=== PATIENT | male | born 1980 ===

== ENCOUNTER 2017-09-25 20:15 | Emergency (ER) | payer OTHER ==
[2017-09-25] MEDS ORDERED: Sodium Chloride 0.9% 1,000 ML IV STA (22:03)
[2017-09-25 22:45] LABS: BASO # 0.1 K/uL (0.0-0.2); BASO % 0.6 % (0.0-2.0); EOS % 0.3 % (0.0-4.0); HEMOGLOBIN 13.5 g/dL (12.0-18.0); LYMPH % 10.2 % (20.0-40.0); MEAN CELL VOLUME 87.4 fl (80.0-94.0); MEAN CORPUSCULAR HEMOGLOBIN 29.1 pg (27.0-31.0); MEAN CORPUSCULAR HGB CONC 33.3 g/dL (33.0-37.0); MEAN PLATELET VOLUME 10.2 fl (7.2-11.7); MONO # 0.6 K/uL (0.0-0.8); MONO % 5.7 % (0.0-10.0); NEUT % 83.2 % (50.0-75.0); RBC 4.66 Mil/uL (4.40-5.90); RED CELL DISTRIBUTION WIDTH 13.5 % (11.5-14.5); WHITE BLOOD COUNT 9.6 K/uL (4.8-10.8)
--- NOTE | 2017-09-25 22:51 | ED PDOC ---
HPI: Influenza Time Seen by Provider: 09/25/17 21:52 Chief Complaint: Flu-like Symptoms History Per: Patient Exam Limitations: no limitations Onset/Duration Of Symptoms: Days (3) Symptoms include: fever, headache, bodyaches. denies: sore throat, cough, vomiting, diarrhea Additional complaint(s):: Reports his partner had similar symptoms few days ago and called it "flu". PMD None. Past Medical History Reviewed: Historical Data, Nursing Documentation, Vital Signs Vital Signs: Last Vital Signs Temp 100.6 F H 09/25/17 20:43 Pulse 93 H 09/25/17 20:43 Resp 18 09/25/17 20:43 BP 128/81 09/25/17 20:43 Pulse Ox 98 09/25/17 20:43 - Medical History PMH: No Chronic Diseases - Surgical History Surgical History: No Surg Hx - Family History Family History: States: No Known Family Hx - Social History Current smoker - smoking cessation education provided: No Alcohol: Occasional Drugs: Denies - Home Medications Home Medications: Ambulatory Orders Medication Instructions Recorded Cyclobenzaprine [Cyclobenzaprine 10 mg PO TID #20 tab 09/15/15 HCl] Ibuprofen [Motrin] 600 mg PO Q6 #20 tab 09/15/15 Acetaminophen [Tylenol Extra 1,000 mg PO Q6 PRN #60 tablet 09/26/17 Strength] Ibuprofen [Motrin Tab] 600 mg PO Q8 PRN #60 tab 09/26/17 - Allergies Allergies/Adverse Reactions: Allergies Allergy/AdvReac Type Severity Reaction Status Date / Time No Known Allergies Allergy Verified 09/15/15 10:55 Review of Systems ROS Statement: Except As Marked, All Systems Reviewed And Found Negative (and as per HPI) Constitutional: Positive for: Fever, Chills, Weakness, Malaise ENT: Negative for: Nose Discharge, Nose Congestion, Throat Pain Cardiovascular: Positive for: Light Headedness. Negative for: Chest Pain, Edema Respiratory: Negative for: Cough Gastrointestinal: Negative for: Vomiting, Diarrhea Musculoskeletal: Negative for: Neck Pain Skin: Negative for: Rash, Lesions Neurological: Positive for: Headache Physical Exam - Reviewed Nursing Documentation Reviewed: Yes Vital Signs Reviewed: Yes - Physical Exam Appears: Positive for: Non-toxic, No Acute Distress Head Exam: Positive for: ATRAUMATIC, NORMOCEPHALIC Skin: Positive for: Warm, Dry Eye Exam: Positive for: EOMI, PERRL ENT: Positive for: Pharynx Is (clear). Negative for: Pharyngeal Erythema, Tonsillar Exudate Neck: Positive for: Painless ROM, Supple (no meningismus) Cardiovascular/Chest: Positive for: Regular Rate, Rhythm, Chest Non Tender. Negative for: Murmur Respiratory: Positive for: Normal Breath Sounds. Negative for: Rales, Wheezing Gastrointestinal/Abdominal: Positive for: Soft. Negative for: Tenderness Back: Positive for: Normal Inspection. Negative for: Decreased ROM Extremity: Positive for: Normal ROM. Negative for: Deformity Lymphatic: Negative for: Adenopathy Neurologic/Psych: Positive for: Alert. Negative for: Motor/Sensory Deficits Medical Decision Making Medical Decision Making: Impression: Febrile illness with benign exam Labs unremarkable. Fever improved in ER along with symptoms. Advised rest, fluids, motrin/tylenol for pain/fever. f/u pmd. - Laboratory Results Result Diagrams: 09/25/17 22:38 09/25/17 22:38 - ECG O2 Sat by Pulse Oximetry: 98 Disposition - Clinical Impression Clinical Impression: Fever Counseled Patient/Family Regarding: Studies Performed, Diagnosis - Disposition Referrals: [facility] [Outside] Disposition: Routine/Home Disposition Time: 00:13 Condition: IMPROVED Prescriptions: Acetaminophen [Tylenol Extra Strength] 1,000 mg PO Q6 PRN #60 tablet PRN Reason: FEVER OR PAIN Ibuprofen [Motrin Tab] 600 mg PO Q8 PRN #60 tab PRN Reason: Pain, Moderate (4-7) Instructions: Fever, Adult (DC), Viral Syndrome (DC) Forms: [facility] ED School/Work Excuse Print Language: BURUNDIAN
[2017-09-25 22:53] LABS: ALB/GLOB RATIO 1.1 (1.0-2.1); ALBUMIN 4.2 g/dL (3.5-5.0); ALT/SGPT 50 U/L (21-72); AST/SGOT 43 U/L (17-59); BLOOD UREA NITROGEN 16 mg/dl (9-20); CALCIUM 8.8 mg/dL (8.4-10.2); GFR AFRICAN-AMERICAN > 60; GFR NON-AFRICAN AMERICAN > 60
[2017-09-25 22:59] LABS: SQUAMOUS EPITHIAL < 1 /hpf (0-5); URINE BILIRUBIN NEGATIVE (NEGATIVE); URINE BLOOD SMALL (NEGATIVE); URINE CLARITY SLIGHTY-CLOUDY (Clear); URINE COLOR AMBER (YELLOW); URINE GLUCOSE (UA) NEG (Normal); URINE LEUKOCYTE ESTERASE NEG Leu/uL (Negative); URINE PROTEIN 100 mg/dL (NEGATIVE)
[2017-09-26 01:26] VITALS: BP 119/69; PULSE 68; RESP 16; TEMP 98.9; O2SAT 99
--- NOTE | 2017-09-26 07:58 | RAD ---
HISTORY: fever unknown source COMPARISON: No prior. TECHNIQUE: Chest PA and lateral FINDINGS: LUNGS: No active pulmonary disease. PLEURA: No significant pleural effusion identified. No pneumothorax apparent. CARDIOVASCULAR: Normal. OSSEOUS STRUCTURES: No significant abnormalities. VISUALIZED UPPER ABDOMEN: Normal. OTHER FINDINGS: None. IMPRESSION: No acute cardiopulmonary disease appreciated.
== END 2017-09-26 01:26 | disposition home or self-care (01) ==
LOC: H.ER 20:15
DX: R50.9 Fever, unspecified (principal); R05 Cough
CPT/HCPCS: 71046; 80053; 81003; 85025; 86703; 87040; 87070; 87086; 87390; 87430; 87804; 96360; 99283; J7030

== ENCOUNTER 2017-09-28 12:50 | Inpatient (IN) | payer OTHER ==
[2017-09-28] MEDS ORDERED: Sodium Chloride 0.9% 1,000 ML IV STA (13:18)
--- NOTE | 2017-09-28 13:35 | ED PDOC ---
History of Present Illness History of Present Illness: 37 year old male presents to the ED a second time for persistent fever onset three days ago. Patient now also complains of associated headache, neck pain, body aches, cough and diarrhea. Denies nausea, vomiting, photophobia, abdominal pain. From his last visit, he was prescribed Motrin, but patient reports the fever keeps coming back. PMD: none provided HPI: Influenza Time Seen by Provider: 09/28/17 13:07 Chief Complaint: Flu-like Symptoms Chief Complaint (Provider): Flu-like Symptoms History Per: Patient Exam Limitations: no limitations Onset/Duration Of Symptoms: Days (x3) Symptoms include: fever, headache, bodyaches, diarrhea, other (neck pain) Past Medical History Reviewed: Historical Data, Nursing Documentation, Vital Signs Vital Signs: Last Vital Signs Temp 103.2 F H 09/28/17 12:57 Pulse 114 H 09/28/17 12:57 Resp 18 09/28/17 12:57 BP 134/80 09/28/17 12:57 Pulse Ox 97 09/28/17 12:57 - Medical History PMH: No Chronic Diseases - Surgical History Surgical History: No Surg Hx - Family History Family History: States: Unknown Family Hx - Social History Current smoker - smoking cessation education provided: No Alcohol: None Drugs: Denies - Home Medications Home Medications: Ambulatory Orders Medication Instructions Recorded No Known Home Med 09/28/17 - Allergies Allergies/Adverse Reactions: Allergies Allergy/AdvReac Type Severity Reaction Status Date / Time No Known Allergies Allergy Verified 09/15/15 10:55 Review of Systems ROS Statement: Except As Marked, All Systems Reviewed And Found Negative Constitutional: Positive for: Fever, Other (body aches) Respiratory: Negative for: Cough Gastrointestinal: Positive for: Diarrhea. Negative for: Nausea, Vomiting, Abdominal Pain Musculoskeletal: Positive for: Neck Pain Neurological: Positive for: Headache (but no photophobia) Physical Exam - Reviewed Nursing Documentation Reviewed: Yes Vital Signs Reviewed: Yes - Physical Exam Appears: Positive for: No Acute Distress (but febrile) Head Exam: Positive for: ATRAUMATIC, NORMOCEPHALIC Skin: Positive for: Normal Color, Warm, Dry Eye Exam: Positive for: Normal appearance ENT: Positive for: Normal ENT Inspection Neck: Positive for: Supple (but tender bilaterally) Cardiovascular/Chest: Positive for: Tachycardia. Negative for: Murmur Respiratory: Positive for: Normal Breath Sounds. Negative for: Accessory Muscle Use, Wheezing, Respiratory Distress Gastrointestinal/Abdominal: Positive for: Normal Exam, Soft. Negative for: Tenderness Back: Positive for: Normal Inspection Extremity: Positive for: Normal ROM Neurologic/Psych: Positive for: Alert, Oriented (x3). Negative for: Motor/ Sensory Deficits Medical Decision Making Medical Decision Making: Initial Impression: fever, flu Time: 13:13 Initial Plan: --VBG --Head CT w/o contrast --CMP --Urine dipstick --CBC with differential --Chest XR portable --Motrin 600mg PO --Sodium chloride 0.9% 1000ml IV --Rocephin 2gm Sodium chloride 0.9% 100ml IV --Tylenol 650mg PO --Zovirax 800mg Sodium chloride 0.9% 250ml IV --Vancomycin 1gm Sodium chloride 0.9% 250ml IV --Blood culture --Influenza A B --Urinalysis 13:[address] FINDINGS: HEMORRHAGE: Trace left temporal subarachnoid hemorrhage is questioned at the mid left temporal laterally in image 29 series 4. Is difficult to differentiate this linear hyperdensity from artifact and follow-up head CT is advised in 12-24 hours. BRAIN: No mass effect or edema. No atrophy or chronic microvascular ischemic changes. VENTRICLES: Unremarkable. No hydrocephalus. CALVARIUM: Unremarkable. PARANASAL SINUSES: Unremarkable as visualized. No significant inflammatory changes. MASTOID AIR CELLS: Unremarkable as visualized. No inflammatory changes OTHER FINDINGS: None. IMPRESSION: Trace left temporal subarachnoid hemorrhage is difficult to completely exclude or differentiate from artifact and follow-up head CT is advised 12-24 hours abort. The remaining brain parenchyma is normal appearing. Time: 14:17 Initial Plan: --CSF Cell Count/Diff --CSF Electrophoresis --CSF IGG --Herpes Simplex 1 / 2, PCR --VDRL, CSF --Glucose, CSF --Total protein, CSF Lumbar Puncture Performed by the emergency provider Time: 14:17 Consent: Informed consent, after discussion of the risks, benefits, and alternatives to the procedure, was obtained using digital marketing project manager [id number] Timeout: A timeout to verify the correct patient, procedure, and site was performed immediately prior to the procedure. Indication: headache, fever Patient's position: sitting Anesthesia: Local anesthesia: Lido 1% 3cc. See MAR for details. Preparation: Patient was prepped and draped in the usual sterile fashion and sterile technique was used. The landmarks were identified. Needle size: A 20 gauge spinal needle. Lumbar entry space: L4-L5 level. Fluid appearance: clear. Post-procedure: Site cleansed and adhesive bandage applied. The patient tolerated the procedure well with no immediate complications. CSF was sent to lab for analysis. Scribe Attestation: Documented by Divya Ordonez, acting as a scribe for Rowan Colindres MD. Provider Scribe Attestation: All medical entries made by the Scribe were at my direction and personally dictated by me. I have reviewed the chart and agree that the record accurately reflects my personal performance of the history, physical exam, medical decision making, and the department course for this patient. I have also personally directed, reviewed, and agree with the discharge instructions and disposition. - Laboratory Results Result Diagrams: 09/29/17 05:55 09/29/17 05:55 - ECG O2 Sat by Pulse Oximetry: 97 (RA) Pulse Ox Interpretation: Normal Disposition - Clinical Impression Clinical Impression: Influenza-like symptoms, Pneumonia, Headache - Disposition Disposition: Transfer of Care Disposition Time: 15:00 Condition: STABLE Patient Signed Over To: Edson Joya
[2017-09-28 13:48] LABS: VENOUS BLOOD GAS BASE EXCESS -0.9 mmol/L (0.0-2.0); VENOUS BLOOD GAS PCO2 31 mmHg (40-60); VENOUS BLOOD GAS PO2 39 mm/Hg (30-55); VENOUS BLOOD PH 7.46 (7.32-7.43)
[2017-09-28] MEDS ORDERED: Lidocaine 1% MPF (30 ml) Inj ONE (13:55)
--- NOTE | 2017-09-28 13:57 | CT ---
PROCEDURE: CT HEAD WITHOUT CONTRAST. HISTORY: CHRISTINE, fever COMPARISON: None available. TECHNIQUE: Axial computed tomography images were obtained through the head/brain without intravenous contrast. Radiation dose: Total exam DLP = 869.19 mGy-cm. This CT exam was performed using one or more of the following dose reduction techniques: Automated exposure control, adjustment of the mA and/or kV according to patient size, and/or use of iterative reconstruction technique. FINDINGS: HEMORRHAGE: Trace left temporal subarachnoid hemorrhage is questioned at the mid left temporal laterally in image 29 series 4. Is difficult to differentiate this linear hyperdensity from artifact and follow-up head CT is advised in 12-24 hours. BRAIN: No mass effect or edema. No atrophy or chronic microvascular ischemic changes. VENTRICLES: Unremarkable. No hydrocephalus. CALVARIUM: Unremarkable. PARANASAL SINUSES: Unremarkable as visualized. No significant inflammatory changes. MASTOID AIR CELLS: Unremarkable as visualized. No inflammatory changes. OTHER FINDINGS: None. IMPRESSION: Trace left temporal subarachnoid hemorrhage is difficult to completely exclude or differentiate from artifact and follow-up head CT is advised 12-24 hours abort. The remaining brain parenchyma is normal appearing.
[2017-09-28 14:42] LABS: FLUID TYPE SPINAL FLUID
[2017-09-28 14:46] LABS: BASO % 0.3 % (0.0-2.0); HEMOGLOBIN 13.6 g/dL (12.0-18.0); LYMPH # 0.4 K/uL (1.0-4.3); LYMPH % 5.5 % (20.0-40.0); MEAN CELL VOLUME 86.6 fl (80.0-94.0); MEAN CORPUSCULAR HEMOGLOBIN 28.8 pg (27.0-31.0); MEAN CORPUSCULAR HGB CONC 33.2 g/dL (33.0-37.0); MEAN PLATELET VOLUME 12.5 fl (7.2-11.7); MONO # 0.3 K/uL (0.0-0.8); NEUT # 6.7 K/uL (1.8-7.0); NEUT % 90.2 % (50.0-75.0); NRBC % 0.4 % (0.0-0.0); PLATELET COUNT 87 K/uL (130-400); RBC 4.71 Mil/uL (4.40-5.90); RED CELL DISTRIBUTION WIDTH 13.7 % (11.5-14.5); WHITE BLOOD COUNT 7.4 K/uL (4.8-10.8)
[2017-09-28 15:07] LABS: ALB/GLOB RATIO 0.9 (1.0-2.1); ALT/SGPT 103 U/L (21-72); AST/SGOT 142 U/L (17-59); BLOOD UREA NITROGEN 12 mg/dl (9-20); CALCIUM 9.4 mg/dL (8.4-10.2); GFR AFRICAN-AMERICAN > 60; GFR NON-AFRICAN AMERICAN > 60
--- NOTE | 2017-09-28 15:16 | ED PDOC ---
- Laboratory Results Result Diagrams: 09/28/17 14:20 09/28/17 14:20 - ECG O2 Sat by Pulse Oximetry: 100 Medical Decision Making Medical Decision Makin:00 Patient care endorsed from Dr. Colindres to Dr. Joya pending lab results and final disposition. 1700 CSF is unremarkable. No evidence of SAH or meningitis. Discussed the case and findings with Dr Leon. He recommends admission for repeat CT head in am. No isolation requires. CXR with possible LLL infiltrate possible source of infection. Antibiotics given. EXAM: XR Chest, 1 View CLINICAL HISTORY: 37 years old, male; Pain; Chest pain; On breathing; Additional info: Fever TECHNIQUE: Frontal view of the chest. COMPARISON: No relevant prior studies available. FINDINGS: Limitations: Evaluation is limited by acquisition during expiration. Lungs: There are mildly increased interstitial opacities in the left mid to lower lung field. The right lung is clear Pleural space: Unremarkable. No pneumothorax. Heart: Unremarkable. No cardiomegaly. Mediastinum: Unremarkable. Bones/joints: Unremarkable. IMPRESSION: Left mid to lower lung field subsegmental atelectasis versus infiltrate is suspected. Evaluation limited by acquisition during expiration. Recommend PA and lateral projections if the patient is able. Thank you for allowing us to participate in the care of your patient. Dictated and Authenticated by: Lisandra Rucker MD 09/28/2017 5:35 PM Eastern Time ([place] & [place]) Scribe Attestation: Documented by Divya Ordonez, acting as a scribe for Edson Joya MD. Provider Scribe Attestation: All medical entries made by the Scribe were at my direction and personally dictated by me. I have reviewed the chart and agree that the record accurately reflects my personal performance of the history, physical exam, medical decision making, and the department course for this patient. I have also personally directed, reviewed, and agree with the discharge instructions and disposition. Disposition Discussed With : Dale Coelho Doctor Will See Patient In The: ED Counseled Patient/Family Regarding: Studies Performed, Diagnosis - Clinical Impression Clinical Impression: Influenza-like symptoms, Pneumonia, Headache - POA Present On Arrival: None - Disposition Disposition: Hospitalized as Observation Patient Disposition Time: 16:40 Condition: FAIR
[2017-09-28 15:35] LABS: CSF APPEARANCE CLEAR/COLORLESS (CLEAR); CSF VOLUME 2 mL (0-1)
[2017-09-28] MEDS ORDERED: Azithromycin 500 MG in Sodium Chloride 0.9% 250 ML IVPB STA (16:45)
[2017-09-28 16:54] LABS: BANDS 6 % (0-2); LYMPHOCYTE 6 % (20-50); MONOCYTE 5 % (0-10); NEUTROPHIL 83 % (42-75); PLATELET ESTIMATE MARKEDLY DECREASED (NORMAL); TOTAL CELLS COUNTED 100
[2017-09-28 16:55] LABS: ANISOCYTOSIS SLIGHT; LARGE PLATELETS PRESENT; MICROCYTOSIS SLIGHT
[2017-09-28 17:06] LABS: CSF APPEARANCE CLEAR/COLORLESS (CLEAR); CSF VOLUME 2 mL (0-1); FLUID TYPE SPINAL FLUID
[2017-09-28 17:16] LABS: URINE BACTERIA RARE (<OCC); URINE BILIRUBIN NEGATIVE (NEGATIVE); URINE CLARITY SLIGHTY-CLOUDY (Clear); URINE COLOR YELLOW (YELLOW); URINE GLUCOSE (UA) NEG (Normal); URINE LEUKOCYTE ESTERASE NEG Leu/uL (Negative); URINE PROTEIN 100 mg/dL (NEGATIVE); URINE UROBILINOGEN 0.2-1.0 mg/dL (0.2-1.0)
[2017-09-28 17:16] LABS: CSF MONO/MACROPHAGE 2 % (0-0)
[2017-09-28 17:17] LABS: URINE BLOOD NEGATIVE (NEGATIVE)
[2017-09-28 17:34] LABS: CSF MONO/MACROPHAGE 1 % (0-0)
--- NOTE | 2017-09-28 17:41 | RAD ---
HISTORY: Fever COMPARISON: Chest radiographs 09/25/2017. FINDINGS: LUNGS: Borderline left lower lobe infiltrate. Interstitial markings are slightly increased and pulmonary vascular congestion appears mild. No right-sided infiltrate. No pleural effusion bilaterally or pneumothorax. Cardiac size appears prominent. Trachea is midline. PLEURA: As above. CARDIOVASCULAR: As above. OSSEOUS STRUCTURES: No significant abnormalities. VISUALIZED UPPER ABDOMEN: Normal. OTHER FINDINGS: None. IMPRESSION: Early infiltrate or mild atelectasis is identified the left lower lobe medially with borderline pulmonary vascular congestion. Cardiac silhouette appears prominent.
[2017-09-28] MEDS ORDERED: Sodium Chloride 3% for Inhalation 4 ML VIAL.NEB IH PRN (18:07)
--- NOTE | 2017-09-28 18:16 | CP.PCM.HP ---
History of Present Illness - History of Present Illness History of Present Illness: CC: Fever This is a 37 year old male with a past medical history of persistent fever since 3 days ago, now coming to the ED with the complaint of generalized malaise , headache, neck pain, body aches, cough, and diarrhea. The patient states that he was given motrin but despite this the fever kept coming back. In the ED, LP was done which showed clear spinal fluid with mild lymphocyte elevation but otherwise no acute evidence of meningitis. He denies photophobia, nausea, or vomiting, but does complain of generalized headache, fever, cough, and chills. CT scan was done which shows likely artifact but cannot rule out completely small SAH (though as per neurology this is highly unlikely given no blood in CSF and no other signs). However the patient was seen to have questionable left lower lobe infiltrate on CXR. The patient is being admitted for further hemodynamic monitoring, IV antibiotics for pneumonia, and for repeat CT head in AM. Present on Admission - Present on Admission Any Indicators Present on Admission: No History of DVT/PE: No History of Uncontrolled Diabetes: No Review of Systems - Review of Systems Review of Systems: A 12 point review of systems was conducted and found to be negative other than in HPI. Past Patient History - Infectious Disease Hx of Infectious Diseases: None - Past Medical History & Family History Past Medical History?: No Past Family History: Reviewed and not pertinent - Past Social History Smoking Status: Never Smoked Alcohol: Occasional Drugs: Denies - PSYCHIATRIC Hx Substance Use: No - SURGICAL HISTORY Hx Surgeries: No - ANESTHESIA Hx Anesthesia: No Meds Allergies/Adverse Reactions: Allergies Allergy/AdvReac Type Severity Reaction Status Date / Time No Known Allergies Allergy Verified 09/15/15 10:55 Physical Exam - Additional Findings Additional findings: Physical exam: Constitutional- cooperative, awake, alert, diaphoretic Head- NCAT, PERRL Eye- PERRL, EOMI. ENT- normal exam, MMM. Neck- normal inspection, supple, no JVD Respiratory- CTAB, no wheezes rales rhonchi Cardiovascular- RRR, +S1, +S2 no MRG GI/Abdominal- normal bowel sounds, soft, no mass, no hsm Skin- warm, dry Extremities Exam- normal capillary refill, normal inspection Neurological Exam- alert, awake, oriented Psych- normal mood, normal affect Results - Vital Signs Recent Vital Signs: Last Vital Signs Temp 98.7 F 09/28/17 16:30 Pulse 88 09/28/17 16:30 Resp 14 09/28/17 16:30 BP 125/81 09/28/17 16:30 Pulse Ox 100 09/28/17 18:08 - Labs Result Diagrams: 09/28/17 14:20 09/28/17 14:20 Labs: Laboratory Results - last 24 hr 09/28/17 09/28/17 09/28/17 13:41 14:18 14:20 WBC 7.4 RBC 4.71 Hgb 13.6 Hct 40.8 MCV 86.6 MCH 28.8 MCHC 33.2 RDW 13.7 Plt Count 87 L D MPV 12.5 H Neut % (Auto) 90.2 H Lymph % (Auto) 5.5 L Dane % (Auto) 4.0 Eos % (Auto) 0.0 Baso % (Auto) 0.3 Neut # (Auto) 6.7 Lymph # (Auto) 0.4 L Dane # (Auto) 0.3 Eos # (Auto) 0.0 Baso # (Auto) 0.0 Neutrophils % (Manual) 83 H Band Neutrophils % 6 H Lymphocytes % (Manual) 6 L Monocytes % (Manual) 5 Platelet Estimate Markedly decreased L Large Platelets Present Anisocytosis (manual) Slight Microcytosis (manual) Slight pO2 39 VBG pH 7.46 H VBG pCO2 31 L VBG HCO3 23.7 VBG Total CO2 23.0 VBG O2 Sat (Calc) 82.2 H VBG Base Excess -0.9 L VBG Potassium 3.7 Sodium 134.0 Chloride 102.0 Glucose 154 H Lactate 2.0 FiO2 21.0 Blood Gas Comments Lac=2.0 Crit Value Called To kaycee Ward Crit Value Called By Crit Value Read Back Y Blood Gas Notified Time 1347 Potassium Carbon Dioxide Anion Gap BUN Creatinine Est GFR ( Amer) Est GFR (Non-Af Amer) Random Glucose Calcium Total Bilirubin AST ALT Alkaline Phosphatase Total Protein Albumin Globulin Albumin/Globulin Ratio Venous Blood Potassium 3.7 Urine Color Urine Clarity Urine pH Ur Specific [place] Urine Protein Urine Glucose (UA) Urine Ketones Urine Blood Urine Nitrate Urine Bilirubin Urine Urobilinogen Ur Leukocyte Esterase Urine RBC (Auto) Urine Microscopic WBC Urine Bacteria Fluid Type Spinal fluid CSF Volume 2 H CSF Appearance Clear/colorless CSF WBC 2.0 CSF RBC 0.0 CSF Total Cell Counted 5 H CSF Lymphocytes 4.0 H CSF Monos/Macrophages 1 H CSF Comment Tube #4 CSF Glucose CSF Total Protein Influenza Typ A,B (EIA) 09/28/17 09/28/17 09/28/17 14:20 14:40 14:40 WBC RBC Hgb Hct MCV MCH MCHC RDW Plt Count MPV Neut % (Auto) Lymph % (Auto) Dane % (Auto) Eos % (Auto) Baso % (Auto) Neut # (Auto) Lymph # (Auto) Dane # (Auto) Eos # (Auto) Baso # (Auto) Neutrophils % (Manual) Band Neutrophils % Lymphocytes % (Manual) Monocytes % (Manual) Platelet Estimate Large Platelets Anisocytosis (manual) Microcytosis (manual) pO2 VBG pH VBG pCO2 VBG HCO3 VBG Total CO2 VBG O2 Sat (Calc) VBG Base Excess VBG Potassium Sodium 137 Chloride 101 Glucose Lactate FiO2 Blood Gas Comments Crit Value Called To Crit Value Called By Crit Value Read Back Blood Gas Notified Time Potassium 3.8 Carbon Dioxide 20 L Anion Gap 20 BUN 12 Creatinine 0.8 Est GFR ( Amer) > 60 Est GFR (Non-Af Amer) > 60 Random Glucose 134 H Calcium 9.4 Total Bilirubin 1.1 AST 142 H D ALT 103 H D Alkaline Phosphatase 127 H D Total Protein 8.3 H Albumin 4.0 Globulin 4.3 H Albumin/Globulin Ratio 0.9 L Venous Blood Potassium Urine Color Urine Clarity Urine pH Ur Specific [place] Urine Protein Urine Glucose (UA) Urine Ketones Urine Blood Urine Nitrate Urine Bilirubin Urine Urobilinogen Ur Leukocyte Esterase Urine RBC (Auto) Urine Microscopic WBC Urine Bacteria Fluid Type Spinal fluid CSF Volume 2 H CSF Appearance Clear/colorless CSF WBC 4.0 CSF RBC 2.0 H CSF Total Cell Counted 15 H CSF Lymphocytes 13.0 H CSF Monos/Macrophages 2 H CSF Comment CSF Glucose 81 H CSF Total Protein Influenza Typ A,B (EIA) 09/28/17 09/28/17 09/28/17 14:40 14:42 16:55 WBC RBC Hgb Hct MCV MCH MCHC RDW Plt Count MPV Neut % (Auto) Lymph % (Auto) Dane % (Auto) Eos % (Auto) Baso % (Auto) Neut # (Auto) Lymph # (Auto) Dane # (Auto) Eos # (Auto) Baso # (Auto) Neutrophils % (Manual) Band Neutrophils % Lymphocytes % (Manual) Monocytes % (Manual) Platelet Estimate Large Platelets Anisocytosis (manual) Microcytosis (manual) pO2 VBG pH VBG pCO2 VBG HCO3 VBG Total CO2 VBG O2 Sat (Calc) VBG Base Excess VBG Potassium Sodium Chloride Glucose Lactate FiO2 Blood Gas Comments Crit Value Called To Crit Value Called By Crit Value Read Back Blood Gas Notified Time Potassium Carbon Dioxide Anion Gap BUN Creatinine Est GFR ( Amer) Est GFR (Non-Af Amer) Random Glucose Calcium Total Bilirubin AST ALT Alkaline Phosphatase Total Protein Albumin Globulin Albumin/Globulin Ratio Venous Blood Potassium Urine Color Yellow Urine Clarity Slighty-cloudy Urine pH 6.0 Ur Specific [place] 1.013 Urine Protein 100 Urine Glucose (UA) Neg Urine Ketones Negative Urine Blood Negative Urine Nitrate Negative Urine Bilirubin Negative Urine Urobilinogen 0.2-1.0 Ur Leukocyte Esterase Neg Urine RBC (Auto) 3 Urine Microscopic WBC 2 Urine Bacteria Rare Fluid Type CSF Volume CSF Appearance CSF WBC CSF RBC CSF Total Cell Counted CSF Lymphocytes CSF Monos/Macrophages CSF Comment CSF Glucose CSF Total Protein 44.0 Influenza Typ A,B (EIA) Negative for flu a/b Assessment & Plan - Assessment and Plan (Free Text) Plan: ASSESSMENT/PLAN This is a 37 year old male with a past medical history of persistent fever since 3 days ago, now coming to the ED with the complaint of generalized malaise , headache, neck pain, body aches, cough, and diarrhea. The patient states that he was given motrin but despite this the fever kept coming back. In the ED, LP was done which showed clear spinal fluid with mild lymphocyte elevation but otherwise no acute evidence of meningitis. He denies photophobia, nausea, or vomiting, but does complain of generalized headache, fever, and chills. CT scan was done which shows likely artifact but cannot rule out completely small SAH ( though as per neurology this is highly unlikely given no blood in CSF and no other signs). However the patient was seen to have questionable left lower lobe infiltrate on CXR. The patient is being admitted for further hemodynamic monitoring, IV antibiotics for pneumonia, and for repeat CT head in AM. 1) Left lower lobe pneumonia - Med/surg observation - Azithromycin/Rocephin - Monitor vitals - Repeat labs in AM - Tylenol for fever 2) ? small SAH on CT(likely artifact) - No other signs of hemorrhagic CVA and no hx of trauma - Repeat CT head in AM 3) S/p LP - Meningitis thought unlikely at this time - F/u on CSF labs, consider ID consult if abnormal 4) DVT prophylaxis - SCDs (until sah ruled out)
[2017-09-28] MEDS ORDERED: Azithromycin 500 MG IV IVPB ONE (18:44)
[2017-09-28] MEDS: Sodium Chloride 0.9% 1,000 ML IV SCH ×2 (20:35→20:36)
[2017-09-28] MEDS: guaiFENesin 200 mg/10 ml Syrup UD PO PRN (23:30)
[2017-09-29 06:12] LABS: HEMOGLOBIN 12.8 g/dL (12.0-18.0); MEAN CELL VOLUME 86.7 fl (80.0-94.0); MEAN CORPUSCULAR HEMOGLOBIN 29.2 pg (27.0-31.0); MEAN CORPUSCULAR HGB CONC 33.7 g/dL (33.0-37.0); RBC 4.39 Mil/uL (4.40-5.90)
[2017-09-29 06:21] LABS: BLOOD UREA NITROGEN 8 mg/dl (9-20); CALCIUM 8.5 mg/dL (8.4-10.2); GFR AFRICAN-AMERICAN > 60; GFR NON-AFRICAN AMERICAN > 60
[2017-09-29] MEDS: Azithromycin 500 MG in Sodium Chloride 0.9% 250 ML IVPB SCH (08:07)
[2017-09-29] MEDS: Sodium Chloride 0.9% 1,000 ML IV SCH ×2 (08:09→21:10)
[2017-09-29 09:27] LABS: ALB/GLOB RATIO 0.9 (1.0-2.1); ALBUMIN 3.5 g/dL (3.5-5.0); BILIRUBIN,DIRECT 0.6 mg/ml (0.0-0.4)
[2017-09-29 10:39] LABS: INR 1.3 (0.9-1.2); PROTHROMBIN TIME 14.3 Seconds (9.8-13.1)
--- NOTE | 2017-09-29 11:44 | CP.PCM.PN ---
Subjective - Date & Time of Evaluation Date of Evaluation: 09/29/17 Time of Evaluation: 10:15 - Subjective Subjective: Patient seen and examined. Complaining of headache and persistent high fever. Objective - Vital Signs/Intake and Output Vital Signs (last 24 hours): Temp Pulse Resp BP Pulse Ox 102.7 F H 101 H 20 146/90 98 09/29/17 08:07 09/29/17 08:07 09/29/17 08:07 09/29/17 08:07 09/29/17 08:07 - Medications Medications: Current Medications Acetaminophen (Tylenol 325mg Tab) 650 mg PO Q6 PRN PRN Reason: Fever >100.4 F Last Admin: 09/29/17 08:05 Dose: 650 mg Guaifenesin (Robitussin) 200 mg PO Q6 PRN PRN Reason: Cough Last Admin: 09/28/17 23:30 Dose: 200 mg Azithromycin 500 mg/ Sodium (Chloride) 250 mls @ 250 mls/hr IVPB DAILY CHERISE PRN Reason: Protocol Last Admin: 09/29/17 08:07 Dose: 250 mls/hr Ceftriaxone Sodium 1 gm/ (Sodium Chloride) 100 mls @ 100 mls/hr IVPB DAILY CHERISE PRN Reason: Protocol Last Admin: 09/29/17 08:06 Dose: 100 mls/hr Sodium Chloride (Sodium Chloride 0.9%) 1,000 mls @ 75 mls/hr IV .[id number] CHERISE Last Admin: 09/29/17 08:09 Dose: 75 mls/hr Acyclovir 800 mg/ Sodium (Chloride) 250 mls @ 250 mls/hr IVPB Q8 CHERISE PRN Reason: Protocol Last Admin: 09/29/17 08:08 Dose: 250 mls/hr - Labs Labs: 09/29/17 05:55 09/29/17 05:55 PT 14.3 Seconds (9.8-13.1) H 09/29/17 10:23 INR 1.3 (0.9-1.2) H 09/29/17 10:23 - Constitutional Appears: No Acute Distress - Head Exam Head Exam: ATRAUMATIC - Eye Exam Eye Exam: absent: Scleral icterus - ENT Exam ENT Exam: Mucous Membranes Moist - Neck Exam Neck Exam: absent: Meningismus - Respiratory Exam Respiratory Exam: absent: Rales, Rhonchi, Wheezes, Respiratory Distress - Cardiovascular Exam Cardiovascular Exam: REGULAR RHYTHM, +S1, +S2 - GI/Abdominal Exam GI & Abdominal Exam: Soft. absent: Tenderness - Rectal Exam Rectal Exam: Deferred - Extremities Exam Extremities Exam: absent: Calf Tenderness, Pedal Edema - Back Exam Back Exam: absent: tenderness - Neurological Exam Neurological Exam: Alert, Oriented x3 - Psychiatric Exam Psychiatric exam: Normal Affect - Skin Skin Exam: Dry, Intact Assessment and Plan - Assessment and Plan (Free Text) Assessment: 37 yo male with no significant PMH came in with persistent fever of 3 days duration accompanied with headache, general malaise, cough and diarrhea. LP was done in the ER but did not show evidence of meningitis. CXray was questionable for LLL infiltrate. 1. Persistent Fever questionable LLL infiltrate CT scan of the chest Hepatitis profile (LFTs were elevated but trending down) on Rocephin, Zithromax and Acyclovir ID consult with Dr Archer 2. Questionable Small SAH on CT scan of head repeat CT scan of head CSF was clear on LP done in the ER 3. DVT prophylaxis venodyne boots while in bed
--- NOTE | 2017-09-29 11:45 | CP.PCM.CON ---
History of Present Illness - History of Present Illness History of Present Illness: Infectious Disease Consultation_ asked to see this patient at the request of Hospitalist for fever. HPI- Patient is a 37 year old male with no PMH who was admitted with c/o fever for 3 days along with malaise and CHRISTINE and chills and cough and mild diarrhea. Patient denies any sick contacts and denies any recent travel. lives with his family. He had LP done in ED on admission and CSF gram stain and cx is negative and cell count is also not c/w bacterial infection. He denies any CHRISTINE or neck pain now but states he continues to have cough w/o any phlegm. ? LLL infiltrate on cxr on admission and hence possible pneumonia. he denies any nausea or vomiting or any abdominal pain, states diarrhea is mild for past couple days. denies any dysurea, + cough but denies any sob, denies anyc hest pain. denies any CHRISTINE or neck pian now. Review of Systems - Review of Systems Review of Systems: as stated in HPI. Past Patient History - Infectious Disease Hx of Infectious Diseases: None - Past Medical History & Family History Past Medical History?: No - Past Social History Smoking Status: Never Smoked Drugs: Denies Home Situation {Lives}: With Family - CARDIAC Hx Cardiac Disorders: No - PULMONARY Hx Respiratory Disorders: No - NEUROLOGICAL Hx Neurological Disorder: No - HEENT Hx HEENT Problems: No - RENAL Hx Chronic Kidney Disease: No - ENDOCRINE/METABOLIC Hx Endocrine Disorders: No - HEMATOLOGICAL/ONCOLOGICAL Hx Blood Disorders: No - INTEGUMENTARY Hx Dermatological Problems: No - MUSCULOSKELETAL/RHEUMATOLOGICAL Hx Musculoskeletal Disorders: No Hx Falls: No - GASTROINTESTINAL Hx Gastrointestinal Disorders: No - GENITOURINARY/GYNECOLOGICAL Hx Genitourinary Disorders: No - PSYCHIATRIC Hx Psychophysiologic Disorder: No - SURGICAL HISTORY Hx Surgeries: No - ANESTHESIA Hx Anesthesia: No Hx Anesthesia Reactions: No Meds Allergies/Adverse Reactions: Allergies Allergy/AdvReac Type Severity Reaction Status Date / Time No Known Allergies Allergy Verified 09/15/15 10:55 - Medications Medications: Current Medications Acetaminophen (Tylenol 325mg Tab) 650 mg PO Q6 PRN PRN Reason: Fever >100.4 F Last Admin: 09/29/17 08:05 Dose: 650 mg Guaifenesin (Robitussin) 200 mg PO Q6 PRN PRN Reason: Cough Last Admin: 09/28/17 23:30 Dose: 200 mg Azithromycin 500 mg/ Sodium (Chloride) 250 mls @ 250 mls/hr IVPB DAILY CHERISE PRN Reason: Protocol Last Admin: 09/29/17 08:07 Dose: 250 mls/hr Ceftriaxone Sodium 1 gm/ (Sodium Chloride) 100 mls @ 100 mls/hr IVPB DAILY CHERISE PRN Reason: Protocol Last Admin: 09/29/17 08:06 Dose: 100 mls/hr Sodium Chloride (Sodium Chloride 0.9%) 1,000 mls @ 75 mls/hr IV .[id number] CHERISE Last Admin: 09/29/17 08:09 Dose: 75 mls/hr Acyclovir 800 mg/ Sodium (Chloride) 250 mls @ 250 mls/hr IVPB Q8 CHERISE PRN Reason: Protocol Last Admin: 09/29/17 08:08 Dose: 250 mls/hr Physical Exam - Constitutional Appears: No Acute Distress - Head Exam Head Exam: ATRAUMATIC - Eye Exam Eye Exam: EOMI, PERRL - ENT Exam ENT Exam: Normal Oropharynx - Neck Exam Neck exam: Positive for: Full Rom Additional comments: Supple - Respiratory Exam Respiratory Exam: NORMAL BREATHING PATTERN Additional comments: crackles at left base No wheezing - Cardiovascular Exam Cardiovascular Exam: RRR, +S1, +S2 - GI/Abdominal Exam GI & Abdominal Exam: Normal Bowel Sounds, Soft Additional comments: NT, ND - Extremities Exam Extremities exam: Positive for: normal inspection - Neurological Exam Neurological exam: Alert, Oriented x3 Results - Vital Signs Recent Vital Signs: Last Vital Signs Temp 102.7 F H 09/29/17 08:07 Pulse 101 H 09/29/17 08:07 Resp 20 09/29/17 08:07 BP 146/90 09/29/17 08:07 Pulse Ox 98 09/29/17 08:07 - Labs Result Diagrams: 09/29/17 05:55 09/29/17 05:55 Labs: Laboratory Results - last 24 hr 09/28/17 09/28/17 09/28/17 13:41 14:18 14:20 WBC 7.4 RBC 4.71 Hgb 13.6 Hct 40.8 MCV 86.6 MCH 28.8 MCHC 33.2 RDW 13.7 Plt Count 87 L D MPV 12.5 H Neut % (Auto) 90.2 H Lymph % (Auto) 5.5 L Amelia % (Auto) 4.0 Eos % (Auto) 0.0 Baso % (Auto) 0.3 Neut # (Auto) 6.7 Lymph # (Auto) 0.4 L Amelia # (Auto) 0.3 Eos # (Auto) 0.0 Baso # (Auto) 0.0 Neutrophils % (Manual) 83 H Band Neutrophils % 6 H Lymphocytes % (Manual) 6 L Monocytes % (Manual) 5 Platelet Estimate Markedly decreased L Large Platelets Present Anisocytosis (manual) Slight Microcytosis (manual) Slight PT INR pO2 39 VBG pH 7.46 H VBG pCO2 31 L VBG HCO3 23.7 VBG Total CO2 23.0 VBG O2 Sat (Calc) 82.2 H VBG Base Excess -0.9 L VBG Potassium 3.7 Sodium 134.0 Chloride 102.0 Glucose 154 H Lactate 2.0 FiO2 21.0 Blood Gas Comments Lac=2.0 Crit Value Called To kaycee Ward Crit Value Called By Crit Value Read Back Y Blood Gas Notified Time 1347 Potassium Carbon Dioxide Anion Gap BUN Creatinine Est GFR ( Amer) Est GFR (Non-Af Amer) Random Glucose Calcium Total Bilirubin Direct Bilirubin AST ALT Alkaline Phosphatase Total Protein Albumin Globulin Albumin/Globulin Ratio Venous Blood Potassium 3.7 Urine Color Urine Clarity Urine pH Ur Specific [place] Urine Protein Urine Glucose (UA) Urine Ketones Urine Blood Urine Nitrate Urine Bilirubin Urine Urobilinogen Ur Leukocyte Esterase Urine RBC (Auto) Urine Microscopic WBC Urine Bacteria Fluid Type Spinal fluid CSF Volume 2 H CSF Appearance Clear/colorless CSF WBC 2.0 CSF RBC 0.0 CSF Total Cell Counted 5 H CSF Lymphocytes 4.0 H CSF Monos/Macrophages 1 H CSF Comment Tube #4 CSF Glucose CSF Total Protein CSF VDRL HSV Source Description HIV-1 Ab Rapid Screen Influenza Typ A,B (EIA) 09/28/17 09/28/17 09/28/17 14:20 14:40 14:40 WBC RBC Hgb Hct MCV MCH MCHC RDW Plt Count MPV Neut % (Auto) Lymph % (Auto) Amelia % (Auto) Eos % (Auto) Baso % (Auto) Neut # (Auto) Lymph # (Auto) Amelia # (Auto) Eos # (Auto) Baso # (Auto) Neutrophils % (Manual) Band Neutrophils % Lymphocytes % (Manual) Monocytes % (Manual) Platelet Estimate Large Platelets Anisocytosis (manual) Microcytosis (manual) PT INR pO2 VBG pH VBG pCO2 VBG HCO3 VBG Total CO2 VBG O2 Sat (Calc) VBG Base Excess VBG Potassium Sodium 137 Chloride 101 Glucose Lactate FiO2 Blood Gas Comments Crit Value Called To Crit Value Called By Crit Value Read Back Blood Gas Notified Time Potassium 3.8 Carbon Dioxide 20 L Anion Gap 20 BUN 12 Creatinine 0.8 Est GFR ( Amer) > 60 Est GFR (Non-Af Amer) > 60 Random Glucose 134 H Calcium 9.4 Total Bilirubin 1.1 Direct Bilirubin AST 142 H D ALT 103 H D Alkaline Phosphatase 127 H D Total Protein 8.3 H Albumin 4.0 Globulin 4.3 H Albumin/Globulin Ratio 0.9 L Venous Blood Potassium Urine Color Urine Clarity Urine pH Ur Specific [place] Urine Protein Urine Glucose (UA) Urine Ketones Urine Blood Urine Nitrate Urine Bilirubin Urine Urobilinogen Ur Leukocyte Esterase Urine RBC (Auto) Urine Microscopic WBC Urine Bacteria Fluid Type Spinal fluid CSF Volume 2 H CSF Appearance Clear/colorless CSF WBC 4.0 CSF RBC 2.0 H CSF Total Cell Counted 15 H CSF Lymphocytes 13.0 H CSF Monos/Macrophages 2 H CSF Comment CSF Glucose 81 H CSF Total Protein CSF VDRL HSV Source Description HIV-1 Ab Rapid Screen Influenza Typ A,B (EIA) 09/28/17 09/28/17 09/28/17 14:40 14:40 14:40 WBC RBC Hgb Hct MCV MCH MCHC RDW Plt Count MPV Neut % (Auto) Lymph % (Auto) Amelia % (Auto) Eos % (Auto) Baso % (Auto) Neut # (Auto) Lymph # (Auto) Amelia # (Auto) Eos # (Auto) Baso # (Auto) Neutrophils % (Manual) Band Neutrophils % Lymphocytes % (Manual) Monocytes % (Manual) Platelet Estimate Large Platelets Anisocytosis (manual) Microcytosis (manual) PT INR pO2 VBG pH VBG pCO2 VBG HCO3 VBG Total CO2 VBG O2 Sat (Calc) VBG Base Excess VBG Potassium Sodium Chloride Glucose Lactate FiO2 Blood Gas Comments Crit Value Called To Crit Value Called By Crit Value Read Back Blood Gas Notified Time Potassium Carbon Dioxide Anion Gap BUN Creatinine Est GFR ( Amer) Est GFR (Non-Af Amer) Random Glucose Calcium Total Bilirubin Direct Bilirubin AST ALT Alkaline Phosphatase Total Protein Albumin Globulin Albumin/Globulin Ratio Venous Blood Potassium Urine Color Urine Clarity Urine pH Ur Specific [place] Urine Protein Urine Glucose (UA) Urine Ketones Urine Blood Urine Nitrate Urine Bilirubin Urine Urobilinogen Ur Leukocyte Esterase Urine RBC (Auto) Urine Microscopic WBC Urine Bacteria Fluid Type CSF Volume CSF Appearance CSF WBC CSF RBC CSF Total Cell Counted CSF Lymphocytes CSF Monos/Macrophages CSF Comment CSF Glucose CSF Total Protein 44.0 CSF VDRL Nonreactive HSV Source Description Fluid HIV-1 Ab Rapid Screen Influenza Typ A,B (EIA) 09/28/17 09/28/17 09/29/17 14:42 16:55 05:55 WBC 7.0 RBC 4.39 L Hgb 12.8 Hct 38.1 MCV 86.7 MCH 29.2 MCHC 33.7 RDW 14.0 Plt Count 86 L MPV Neut % (Auto) Lymph % (Auto) Amelia % (Auto) Eos % (Auto) Baso % (Auto) Neut # (Auto) Lymph # (Auto) Amelia # (Auto) Eos # (Auto) Baso # (Auto) Neutrophils % (Manual) Band Neutrophils % Lymphocytes % (Manual) Monocytes % (Manual) Platelet Estimate Large Platelets Anisocytosis (manual) Microcytosis (manual) PT INR pO2 VBG pH VBG pCO2 VBG HCO3 VBG Total CO2 VBG O2 Sat (Calc) VBG Base Excess VBG Potassium Sodium Chloride Glucose Lactate FiO2 Blood Gas Comments Crit Value Called To Crit Value Called By Crit Value Read Back Blood Gas Notified Time Potassium Carbon Dioxide Anion Gap BUN Creatinine Est GFR ( Amer) Est GFR (Non-Af Amer) Random Glucose Calcium Total Bilirubin Direct Bilirubin AST ALT Alkaline Phosphatase Total Protein Albumin Globulin Albumin/Globulin Ratio Venous Blood Potassium Urine Color Yellow Urine Clarity Slighty-cloudy Urine pH 6.0 Ur Specific [place] 1.013 Urine Protein 100 Urine Glucose (UA) Neg Urine Ketones Negative Urine Blood Negative Urine Nitrate Negative Urine Bilirubin Negative Urine Urobilinogen 0.2-1.0 Ur Leukocyte Esterase Neg Urine RBC (Auto) 3 Urine Microscopic WBC 2 Urine Bacteria Rare Fluid Type CSF Volume CSF Appearance CSF WBC CSF RBC CSF Total Cell Counted CSF Lymphocytes CSF Monos/Macrophages CSF Comment CSF Glucose CSF Total Protein CSF VDRL HSV Source Description HIV-1 Ab Rapid Screen Influenza Typ A,B (EIA) Negative for flu a/b 09/29/17 09/29/17 09/29/17 05:55 09:12 09:12 WBC RBC Hgb Hct MCV MCH MCHC RDW Plt Count MPV Neut % (Auto) Lymph % (Auto) Amelia % (Auto) Eos % (Auto) Baso % (Auto) Neut # (Auto) Lymph # (Auto) Amelia # (Auto) Eos # (Auto) Baso # (Auto) Neutrophils % (Manual) Band Neutrophils % Lymphocytes % (Manual) Monocytes % (Manual) Platelet Estimate Large Platelets Anisocytosis (manual) Microcytosis (manual) PT INR pO2 VBG pH VBG pCO2 VBG HCO3 VBG Total CO2 VBG O2 Sat (Calc) VBG Base Excess VBG Potassium Sodium 139 Chloride 104 Glucose Lactate FiO2 Blood Gas Comments Crit Value Called To Crit Value Called By Crit Value Read Back Blood Gas Notified Time Potassium 3.8 Carbon Dioxide 24 Anion Gap 15 BUN 8 L Creatinine 0.9 Est GFR ( Amer) > 60 Est GFR (Non-Af Amer) > 60 Random Glucose 118 H Calcium 8.5 Total Bilirubin 0.6 Direct Bilirubin 0.6 H AST 98 H D ALT 97 H Alkaline Phosphatase 114 Total Protein 7.2 Albumin 3.5 Globulin 3.8 Albumin/Globulin Ratio 0.9 L Venous Blood Potassium Urine Color Urine Clarity Urine pH Ur Specific [place] Urine Protein Urine Glucose (UA) Urine Ketones Urine Blood Urine Nitrate Urine Bilirubin Urine Urobilinogen Ur Leukocyte Esterase Urine RBC (Auto) Urine Microscopic WBC Urine Bacteria Fluid Type CSF Volume CSF Appearance CSF WBC CSF RBC CSF Total Cell Counted CSF Lymphocytes CSF Monos/Macrophages CSF Comment CSF Glucose CSF Total Protein CSF VDRL HSV Source Description HIV-1 Ab Rapid Screen Non reactive Influenza Typ A,B (EIA) 09/29/17 10:23 WBC RBC Hgb Hct MCV MCH MCHC RDW Plt Count MPV Neut % (Auto) Lymph % (Auto) Amelia % (Auto) Eos % (Auto) Baso % (Auto) Neut # (Auto) Lymph # (Auto) Amelia # (Auto) Eos # (Auto) Baso # (Auto) Neutrophils % (Manual) Band Neutrophils % Lymphocytes % (Manual) Monocytes % (Manual) Platelet Estimate Large Platelets Anisocytosis (manual) Microcytosis (manual) PT 14.3 H INR 1.3 H pO2 VBG pH VBG pCO2 VBG HCO3 VBG Total CO2 VBG O2 Sat (Calc) VBG Base Excess VBG Potassium Sodium Chloride Glucose Lactate FiO2 Blood Gas Comments Crit Value Called To Crit Value Called By Crit Value Read Back Blood Gas Notified Time Potassium Carbon Dioxide Anion Gap BUN Creatinine Est GFR ( Amer) Est GFR (Non-Af Amer) Random Glucose Calcium Total Bilirubin Direct Bilirubin AST ALT Alkaline Phosphatase Total Protein Albumin Globulin Albumin/Globulin Ratio Venous Blood Potassium Urine Color Urine Clarity Urine pH Ur Specific [place] Urine Protein Urine Glucose (UA) Urine Ketones Urine Blood Urine Nitrate Urine Bilirubin Urine Urobilinogen Ur Leukocyte Esterase Urine RBC (Auto) Urine Microscopic WBC Urine Bacteria Fluid Type CSF Volume CSF Appearance CSF WBC CSF RBC CSF Total Cell Counted CSF Lymphocytes CSF Monos/Macrophages CSF Comment CSF Glucose CSF Total Protein CSF VDRL HSV Source Description HIV-1 Ab Rapid Screen Influenza Typ A,B (EIA) Microbiology 09/28/17 14:20 Blood-Venous Blood Culture - Preliminary NO GROWTH AFTER 24 HOURS 09/28/17 14:40 Cerebral Spinal Fluid Gram Stain - Final 09/28/17 14:40 Cerebral Spinal Fluid CSF Culture - Preliminary NO GROWTH AFTER 24 HOURS Accession No. : [id number] Patient Name / ID : RJ HAYWARD / [id number] Exam Date : 09/29/2017 12:05:14 ( Approved ) Study Comment : Sex / Age : M / 37Y Creator : Alfonso Posey MD Dictator : Beta Tester : Automatic Toe Laster : Alfonso Posey MD Approver2 : Report Date : 09/29/2017 13:05:22 My Comment : PROCEDURE: CT chest 09/29/2017 HISTORY: Rule out LLL infiltrate COMPARISON: Comparison made with chest radiograph 09/28/2017 TECHNIQUE: Contiguous helical/transaxial sections were obtained through the chest without intravenous contrast enhancement. Sagittal and coronal reconstructions were performed. Radiation dose (DLP): 573.51 mGy-cm. This CT exam was performed using one or more of the following dose reduction techniques: Automated exposure control, adjustment of the mA and/or kV according to patient size, and/or use of iterative reconstruction technique. . FINDINGS: LUNGS: Patchy lower lobe infiltrate changes associate with more dense consolidation possibly representing concomitant atelectasis as well. Small left-sided effusion is also present. Remaining lung olivares clear. MEDIASTINUM: Heart is mildly enlarged. . No significant pericardial effusion. There are a few small nonspecific mediastinal lymph nodes. Evaluation for hilar adenopathy limited due to the lack of circulating intravenous contrast material. Central airways midline and patent. No large central endoluminal lesions. There is small hiatal hernia. PLEURA: As above. No evidence of pneumothorax BONES: No fracture. No destructive lesion. UPPER ABDOMEN: Spleen appears mildly enlarged measuring over 13 cm in AP dimension. OTHER FINDINGS: None. IMPRESSION: Patchy lower lobe infiltrate changes associate with more dense consolidation possibly representing concomitant atelectasis as well. Small left-sided effusion is also present. Remaining lung olivares clear. Accession No. : [id number] Patient Name / ID : RJ HAYWARD / [id number] Exam Date : 09/29/2017 11:59:46 ( Approved ) Study Comment : Sex / Age : M / 37Y Creator : Alfonso Posey MD Dictator : Beta Tester : Automatic Toe Laster : Alfonso Posey MD Approver2 : Report Date : 09/29/2017 12:18:10 My Comment : PROCEDURE: CT HEAD WITHOUT CONTRAST. HISTORY: Rule out SAH, ? of SAH on previous CT, likely artifact COMPARISON: Comparison made with prior CT scan of the brain 09/28/2017. TECHNIQUE: Axial computed tomography images were obtained through the head/brain without intravenous contrast. Radiation dose: Total exam DLP = 804.27 mGy-cm. This CT exam was performed using one or more of the following dose reduction techniques: Automated exposure control, adjustment of the mA and/or kV according to patient size, and/or use of iterative reconstruction technique. FINDINGS: HEMORRHAGE: No intracranial hemorrhage. BRAIN: No mass effect or edema. No atrophy or chronic microvascular ischemic changes. VENTRICLES: Unremarkable. No hydrocephalus. CALVARIUM: Unremarkable. Re- demonstrated is a scar in the anterior superior frontal scalp at the vertex which crosses midline more superiorly. PARANASAL SINUSES: Mild mucoperiosteal inflammatory changes within the ethmoid air complex. MASTOID AIR CELLS: Hypoplastic appearance of the right chamber frontal sinus. There also appears to be a few small bone islands or osteomas within the frontal OTHER FINDINGS: None. IMPRESSION: No acute intracranial hemorrhage. Mild mucoperiosteal inflammatory changes several ethmoid air cells. Assessment & Plan (1) Pneumonia Status: Acute (2) Fever Status: Acute - Assessment and Plan (Free Text) Assessment: A/P- 37 year old male with no PMH admitted with fever .chills and found to have LLL pneumonia. febrile normal wbc count CSF gram stain and cx- Ngetaive CSF cell count clear and only 2 wbc and mostly lymph not c/w bacterial meningitis. Chest Ct- left lower lobe infiltrate and possible effusion ( as per report). rapid HIV- negative' Influenza- Negative blood cx- neg x 2 UA- negative Plan- check urine legionella AG. check mycoplasma serology. advise to continue with empiric acyclovir pending CSF HSV PCR result. advise to continue with zithromax to cover for atypical lung pathogens. advise to d/c ceftriaxone and place on zosyn for broader coverage. monitor temps closely. All above d/w patient and he verbalizes full understanding of all above. Thank you for allowing me to take part in the care of this patient.
--- NOTE | 2017-09-29 12:24 | CT ---
PROCEDURE: CT HEAD WITHOUT CONTRAST. HISTORY: Rule out SAH, ? of SAH on previous CT, likely artifact COMPARISON: Comparison made with prior CT scan of the brain 09/28/2017. TECHNIQUE: Axial computed tomography images were obtained through the head/brain without intravenous contrast. Radiation dose: Total exam DLP = 804.27 mGy-cm. This CT exam was performed using one or more of the following dose reduction techniques: Automated exposure control, adjustment of the mA and/or kV according to patient size, and/or use of iterative reconstruction technique. FINDINGS: HEMORRHAGE: No intracranial hemorrhage. BRAIN: No mass effect or edema. No atrophy or chronic microvascular ischemic changes. VENTRICLES: Unremarkable. No hydrocephalus. CALVARIUM: Unremarkable. Re- demonstrated is a scar in the anterior superior frontal scalp at the vertex which crosses midline more superiorly. PARANASAL SINUSES: Mild mucoperiosteal inflammatory changes within the ethmoid air complex. MASTOID AIR CELLS: Hypoplastic appearance of the right chamber frontal sinus. There also appears to be a few small bone islands or osteomas within the frontal OTHER FINDINGS: None. IMPRESSION: No acute intracranial hemorrhage. Mild mucoperiosteal inflammatory changes several ethmoid air cells.
[2017-09-29] MEDS: guaiFENesin 200 mg/10 ml Syrup UD PO PRN (12:37)
--- NOTE | 2017-09-29 13:12 | CT ---
PROCEDURE: CT chest 09/29/2017 HISTORY: Rule out LLL infiltrate COMPARISON: Comparison made with chest radiograph 09/28/2017 TECHNIQUE: Contiguous helical/transaxial sections were obtained through the chest without intravenous contrast enhancement. Sagittal and coronal reconstructions were performed. Radiation dose (DLP): 573.51 mGy-cm. This CT exam was performed using one or more of the following dose reduction techniques: Automated exposure control, adjustment of the mA and/or kV according to patient size, and/or use of iterative reconstruction technique. . FINDINGS: LUNGS: Patchy lower lobe infiltrate changes associate with more dense consolidation possibly representing concomitant atelectasis as well. Small left-sided effusion is also present. Remaining lung olivares clear. MEDIASTINUM: Heart is mildly enlarged. . No significant pericardial effusion. There are a few small nonspecific mediastinal lymph nodes. Evaluation for hilar adenopathy limited due to the lack of circulating intravenous contrast material. Central airways midline and patent. No large central endoluminal lesions. There is small hiatal hernia. PLEURA: As above. No evidence of pneumothorax BONES: No fracture. No destructive lesion. UPPER ABDOMEN: Spleen appears mildly enlarged measuring over 13 cm in AP dimension. OTHER FINDINGS: None. IMPRESSION: Patchy lower lobe infiltrate changes associate with more dense consolidation possibly representing concomitant atelectasis as well. Small left-sided effusion is also present. Remaining lung olivares clear.
[2017-09-29 15:17] LABS: BARBITURATES, UR NEGATIVE (NEGATIVE); BENZODIAZEPINES, UR NEGATIVE (NEGATIVE); OPIATES, UR NEGATIVE (NEGATIVE); PHENCYCLIDINE, UR NEGATIVE (NEGATIVE)
[2017-09-29 15:59] LABS: HEPATITIS B SURFACE AG Negative (NEGATIVE)
[2017-09-29] MEDS: Piperacillin/Tazobact 3.375 GM in Sodium Chloride 0.9% 100 ML IVPB SCH ×2 (15:59→22:14)
[2017-09-29 16:06] LABS: HEPATITIS B CORE AB NEGATIVE (NEGATIVE)
[2017-09-29 16:17] LABS: HEPATITIS C ANTIBODY NEGATIVE (NEGATIVE)
[2017-09-29 16:55] LABS: HEPATITIS A IGM NEGATIVE (NEGATIVE)
--- NOTE | 2017-09-29 17:07 | CP.PCM.CON ---
History of Present Illness - History of Present Illness History of Present Illness: 37 yr old male who has a 9/10 severity headache with no nuchal rigidity, no meningismus, with photophobia, and no vomiting. The patient says that he does not have headaches on a regular basis, and is now quite uncomfortable. There is no weakness, no aphasia, no numbness or tingling, no diplopia, no other symptoms of which he complains. He does not give a history of head trauma, or mva, or new medications. Denies sick contacts. He had LP done in ED on admission and CSF gram stain and cx is negative and cell count is also not c/w bacterial infection. PMH/PSH: none FH/SH:no tobacco, no etoh. Has a partner, and two children. ALL: nkda on exam: Normal neurological examination. gait is normal, as are reflexes and strength. There is no visual field cut, nor is there any focal sensory loss. Past Patient History - Infectious Disease Hx of Infectious Diseases: None - Past Medical History & Family History Past Medical History?: No - Past Social History Alcohol: None Drugs: Denies - CARDIAC Hx Cardiac Disorders: No - PULMONARY Hx Respiratory Disorders: No - NEUROLOGICAL Hx Neurological Disorder: No - HEENT Hx HEENT Problems: No - RENAL Hx Chronic Kidney Disease: No - ENDOCRINE/METABOLIC Hx Endocrine Disorders: No - HEMATOLOGICAL/ONCOLOGICAL Hx Blood Disorders: No - INTEGUMENTARY Hx Dermatological Problems: No - MUSCULOSKELETAL/RHEUMATOLOGICAL Hx Musculoskeletal Disorders: No Hx Falls: No - GASTROINTESTINAL Hx Gastrointestinal Disorders: No - GENITOURINARY/GYNECOLOGICAL Hx Genitourinary Disorders: No - PSYCHIATRIC Hx Psychophysiologic Disorder: No - SURGICAL HISTORY Hx Surgeries: No - ANESTHESIA Hx Anesthesia: No Hx Anesthesia Reactions: No Meds Allergies/Adverse Reactions: Allergies Allergy/AdvReac Type Severity Reaction Status Date / Time No Known Allergies Allergy Verified 09/15/15 10:55 - Medications Medications: Current Medications Acetaminophen (Tylenol 325mg Tab) 650 mg PO Q6 PRN PRN Reason: Fever >100.4 F Last Admin: 09/29/17 15:44 Dose: 650 mg Guaifenesin (Robitussin) 200 mg PO Q6 PRN PRN Reason: Cough Last Admin: 09/29/17 12:37 Dose: 200 mg Azithromycin 500 mg/ Sodium (Chloride) 250 mls @ 250 mls/hr IVPB DAILY CHERISE PRN Reason: Protocol Last Admin: 09/29/17 08:07 Dose: 250 mls/hr Sodium Chloride (Sodium Chloride 0.9%) 1,000 mls @ 75 mls/hr IV .[id number] [facility] Last Admin: 09/29/17 08:09 Dose: 75 mls/hr Acyclovir 800 mg/ Sodium (Chloride) 250 mls @ 250 mls/hr IVPB Q8 CHERISE PRN Reason: Protocol Last Admin: 09/29/17 15:59 Dose: 250 mls/hr Piperacillin Sod/Tazobactam (Sod 3.375 gm/ Sodium Chloride) 100 mls @ 100 mls/ hr IVPB Q6 CHERISE PRN Reason: Protocol Last Admin: 09/29/17 15:59 Dose: 100 mls/hr Results - Vital Signs Recent Vital Signs: Last Vital Signs Temp 103.1 F H 09/29/17 16:14 Pulse 97 H 09/29/17 16:14 Resp 18 09/29/17 16:14 BP 144/88 09/29/17 16:14 Pulse Ox 97 09/29/17 16:14 - Labs Result Diagrams: 09/29/17 05:55 09/29/17 05:55 Labs: Laboratory Results - last 24 hr 09/28/17 09/28/17 09/28/17 14:18 14:20 14:40 WBC RBC Hgb Hct MCV MCH MCHC RDW Plt Count Neutrophils % (Manual) 83 H Band Neutrophils % 6 H Lymphocytes % (Manual) 6 L Monocytes % (Manual) 5 Platelet Estimate Markedly decreased L Large Platelets Present Anisocytosis (manual) Slight Microcytosis (manual) Slight PT INR Sodium Potassium Chloride Carbon Dioxide Anion Gap BUN Creatinine Est GFR ( Amer) Est GFR (Non-Af Amer) Random Glucose Calcium Total Bilirubin Direct Bilirubin AST ALT Alkaline Phosphatase Total Protein Albumin Globulin Albumin/Globulin Ratio Urine Color Urine Clarity Urine pH Ur Specific [place] Urine Protein Urine Glucose (UA) Urine Ketones Urine Blood Urine Nitrate Urine Bilirubin Urine Urobilinogen Ur Leukocyte Esterase Urine RBC (Auto) Urine Microscopic WBC Urine Bacteria Fluid Type Spinal fluid CSF Volume 2 H CSF Appearance Clear/colorless CSF WBC 2.0 CSF RBC 0.0 CSF Total Cell Counted 5 H 15 H CSF Lymphocytes 4.0 H 13.0 H CSF Monos/Macrophages 1 H 2 H CSF Comment Tube #4 CSF VDRL Urine Opiates Screen Urine Methadone Screen Ur Barbiturates Screen Ur Phencyclidine Scrn Ur Amphetamines Screen U Benzodiazepines Scrn U Oth Cocaine Metabols U Cannabinoids Screen Hep Bs Antigen Hep B Core IgM Ab Hepatitis C Antibody HSV Source Description HIV-1 Ab Rapid Screen 09/28/17 09/28/17 09/28/17 14:40 14:40 16:55 WBC RBC Hgb Hct MCV MCH MCHC RDW Plt Count Neutrophils % (Manual) Band Neutrophils % Lymphocytes % (Manual) Monocytes % (Manual) Platelet Estimate Large Platelets Anisocytosis (manual) Microcytosis (manual) PT INR Sodium Potassium Chloride Carbon Dioxide Anion Gap BUN Creatinine Est GFR ( Amer) Est GFR (Non-Af Amer) Random Glucose Calcium Total Bilirubin Direct Bilirubin AST ALT Alkaline Phosphatase Total Protein Albumin Globulin Albumin/Globulin Ratio Urine Color Yellow Urine Clarity Slighty-cloudy Urine pH 6.0 Ur Specific [place] 1.013 Urine Protein 100 Urine Glucose (UA) Neg Urine Ketones Negative Urine Blood Negative Urine Nitrate Negative Urine Bilirubin Negative Urine Urobilinogen 0.2-1.0 Ur Leukocyte Esterase Neg Urine RBC (Auto) 3 Urine Microscopic WBC 2 Urine Bacteria Rare Fluid Type CSF Volume CSF Appearance CSF WBC CSF RBC CSF Total Cell Counted CSF Lymphocytes CSF Monos/Macrophages CSF Comment CSF VDRL Nonreactive Urine Opiates Screen Urine Methadone Screen Ur Barbiturates Screen Ur Phencyclidine Scrn Ur Amphetamines Screen U Benzodiazepines Scrn U Oth Cocaine Metabols U Cannabinoids Screen Hep Bs Antigen Hep B Core IgM Ab Hepatitis C Antibody HSV Source Description Fluid HIV-1 Ab Rapid Screen 09/29/17 09/29/17 09/29/17 05:55 05:55 09:12 WBC 7.0 RBC 4.39 L Hgb 12.8 Hct 38.1 MCV 86.7 MCH 29.2 MCHC 33.7 RDW 14.0 Plt Count 86 L Neutrophils % (Manual) Band Neutrophils % Lymphocytes % (Manual) Monocytes % (Manual) Platelet Estimate Large Platelets Anisocytosis (manual) Microcytosis (manual) PT INR Sodium 139 Potassium 3.8 Chloride 104 Carbon Dioxide 24 Anion Gap 15 BUN 8 L Creatinine 0.9 Est GFR ( Amer) > 60 Est GFR (Non-Af Amer) > 60 Random Glucose 118 H Calcium 8.5 Total Bilirubin Direct Bilirubin AST ALT Alkaline Phosphatase Total Protein Albumin Globulin Albumin/Globulin Ratio Urine Color Urine Clarity Urine pH Ur Specific [place] Urine Protein Urine Glucose (UA) Urine Ketones Urine Blood Urine Nitrate Urine Bilirubin Urine Urobilinogen Ur Leukocyte Esterase Urine RBC (Auto) Urine Microscopic WBC Urine Bacteria Fluid Type CSF Volume CSF Appearance CSF WBC CSF RBC CSF Total Cell Counted CSF Lymphocytes CSF Monos/Macrophages CSF Comment CSF VDRL Urine Opiates Screen Urine Methadone Screen Ur Barbiturates Screen Ur Phencyclidine Scrn Ur Amphetamines Screen U Benzodiazepines Scrn U Oth Cocaine Metabols U Cannabinoids Screen Hep Bs Antigen Hep B Core IgM Ab Hepatitis C Antibody HSV Source Description HIV-1 Ab Rapid Screen Non reactive 09/29/17 09/29/17 09/29/17 09:12 10:23 11:50 WBC RBC Hgb Hct MCV MCH MCHC RDW Plt Count Neutrophils % (Manual) Band Neutrophils % Lymphocytes % (Manual) Monocytes % (Manual) Platelet Estimate Large Platelets Anisocytosis (manual) Microcytosis (manual) PT 14.3 H INR 1.3 H Sodium Potassium Chloride Carbon Dioxide Anion Gap BUN Creatinine Est GFR ( Amer) Est GFR (Non-Af Amer) Random Glucose Calcium Total Bilirubin 0.6 Direct Bilirubin 0.6 H AST 98 H D ALT 97 H Alkaline Phosphatase 114 Total Protein 7.2 Albumin 3.5 Globulin 3.8 Albumin/Globulin Ratio 0.9 L Urine Color Urine Clarity Urine pH Ur Specific [place] Urine Protein Urine Glucose (UA) Urine Ketones Urine Blood Urine Nitrate Urine Bilirubin Urine Urobilinogen Ur Leukocyte Esterase Urine RBC (Auto) Urine Microscopic WBC Urine Bacteria Fluid Type CSF Volume CSF Appearance CSF WBC CSF RBC CSF Total Cell Counted CSF Lymphocytes CSF Monos/Macrophages CSF Comment CSF VDRL Urine Opiates Screen Urine Methadone Screen Ur Barbiturates Screen Ur Phencyclidine Scrn Ur Amphetamines Screen U Benzodiazepines Scrn U Oth Cocaine Metabols U Cannabinoids Screen Hep Bs Antigen Negative Hep B Core IgM Ab Negative Hepatitis C Antibody Negative HSV Source Description HIV-1 Ab Rapid Screen 09/29/17 14:31 WBC RBC Hgb Hct MCV MCH MCHC RDW Plt Count Neutrophils % (Manual) Band Neutrophils % Lymphocytes % (Manual) Monocytes % (Manual) Platelet Estimate Large Platelets Anisocytosis (manual) Microcytosis (manual) PT INR Sodium Potassium Chloride Carbon Dioxide Anion Gap BUN Creatinine Est GFR ( Amer) Est GFR (Non-Af Amer) Random Glucose Calcium Total Bilirubin Direct Bilirubin AST ALT Alkaline Phosphatase Total Protein Albumin Globulin Albumin/Globulin Ratio Urine Color Urine Clarity Urine pH Ur Specific [place] Urine Protein Urine Glucose (UA) Urine Ketones Urine Blood Urine Nitrate Urine Bilirubin Urine Urobilinogen Ur Leukocyte Esterase Urine RBC (Auto) Urine Microscopic WBC Urine Bacteria Fluid Type CSF Volume CSF Appearance CSF WBC CSF RBC CSF Total Cell Counted CSF Lymphocytes CSF Monos/Macrophages CSF Comment CSF VDRL Urine Opiates Screen Negative Urine Methadone Screen Negative Ur Barbiturates Screen Negative Ur Phencyclidine Scrn Negative Ur Amphetamines Screen Negative U Benzodiazepines Scrn Negative U Oth Cocaine Metabols Negative U Cannabinoids Screen Negative Hep Bs Antigen Hep B Core IgM Ab Hepatitis C Antibody HSV Source Description HIV-1 Ab Rapid Screen - Imaging and Cardiology CT scan - head Status: Image reviewed by me, Report reviewed by me (ct head is normal. ) Assessment & Plan - Assessment and Plan (Free Text) Assessment: labs: alt, ast is extremely elevated at above 100. LP: results show slightly elevated glucose, otherwise normal. Hep B and Hep C negative HIV negative HSV 1 and 2 pending. A/p: 37 yr old male with what appears to be possible viral encephalitis, barring pending herpes results. Plan: 1. Defer to ID for treatment of viral encephalitis. 2. Obtain CTA head and neck. Thank you Dr. neff
[2017-09-29] MEDS ORDERED: Sodium Chloride 3% for Inhalation 4 ML VIAL.NEB IH PRN (23:17)
[2017-09-30] MEDS: Piperacillin/Tazobact 3.375 GM in Sodium Chloride 0.9% 100 ML IVPB SCH ×4 (03:51→22:51)
[2017-09-30] MEDS: Azithromycin 500 MG in Sodium Chloride 0.9% 250 ML IVPB SCH (09:04)
--- NOTE | 2017-09-30 09:05 | US ---
HISTORY: Abnormal LFTs, fever. Assess gallbladder. COMPARISON: None. TECHNIQUE: Sonographic evaluation of the abdomen. FINDINGS: LIVER: Measures 20.7 cm. Normal echogenicity of the liver parenchyma. No mass. No intrahepatic bile duct dilatation. GALLBLADDER: Unremarkable. No gallstones. COMMON BILE DUCT: Measures 2.9 mm. No stones. No dilatation. PANCREAS: Unremarkable as visualized. No mass. No ductal dilatation. RIGHT KIDNEY: Measures 6.2 x 11.7cm. Normal echogenicity. No calculus, mass, or hydronephrosis. LEFT KIDNEY: Measures 5.5 x 11.2cm. Normal echogenicity. No calculus, mass, or hydronephrosis. SPLEEN: Normal in size and contour. No mass. AORTA: No aneurysmal dilatation. IVC: Unremarkable. OTHER FINDINGS: None. IMPRESSION: Hepatomegaly without focal liver abnormality. Unremarkable gallbladder
[2017-09-30] MEDS: guaiFENesin 200 mg/10 ml Syrup UD PO PRN (09:09)
--- NOTE | 2017-09-30 10:06 | CP.PCM.PN ---
Subjective - Date & Time of Evaluation Date of Evaluation: 09/30/17 Time of Evaluation: 10:06 - Subjective Subjective: ID Note- Patient seen and examined today. He c/o CHRISTINE today and cough. he denies any chills. denies any change in vision. Objective - Vital Signs/Intake and Output Vital Signs (last 24 hours): Temp Pulse Resp BP Pulse Ox 98.3 F 70 20 142/92 H 95 09/30/17 09:00 09/30/17 09:00 09/30/17 09:00 09/30/17 09:00 09/30/17 09:00 - Medications Medications: Current Medications Acetaminophen (Tylenol 325mg Tab) 650 mg PO Q6 PRN PRN Reason: Fever >100.4 F Last Admin: 09/29/17 15:44 Dose: 650 mg Guaifenesin (Robitussin) 200 mg PO Q6 PRN PRN Reason: Cough Last Admin: 09/30/17 09:09 Dose: 200 mg Azithromycin 500 mg/ Sodium (Chloride) 250 mls @ 250 mls/hr IVPB DAILY CHERISE PRN Reason: Protocol Last Admin: 09/30/17 09:04 Dose: 250 mls/hr Sodium Chloride (Sodium Chloride 0.9%) 1,000 mls @ 75 mls/hr IV .[id number] CHERISE Last Admin: 09/29/17 21:10 Dose: Not Given Acyclovir 800 mg/ Sodium (Chloride) 250 mls @ 250 mls/hr IVPB Q8 CHERISE PRN Reason: Protocol Last Admin: 09/30/17 09:05 Dose: 250 mls/hr Piperacillin Sod/Tazobactam (Sod 3.375 gm/ Sodium Chloride) 100 mls @ 100 mls/ hr IVPB Q6 CHERISE PRN Reason: Protocol Last Admin: 09/30/17 09:05 Dose: 100 mls/hr - Labs Labs: - Additional Findings Additional findings: - Constitutional Appears: No Acute Distress - Head Exam Head Exam: ATRAUMATIC - Eye Exam Eye Exam: EOMI, PERRL - ENT Exam ENT Exam: Normal Oropharynx - Neck Exam Neck exam: Positive for: Full Rom Additional comments: Supple - Respiratory Exam Respiratory Exam: NORMAL BREATHING PATTERN Additional comments: crackles at left base No wheezing - Cardiovascular Exam Cardiovascular Exam: RRR, +S1, +S2 - GI/Abdominal Exam GI & Abdominal Exam: Normal Bowel Sounds, Soft Additional comments: NT, ND - Extremities Exam Extremities exam: Positive for: normal inspection - Neurological Exam Neurological exam: Alert, Oriented x 3 Laboratory Results - last 72 hr 09/28/17 09/28/17 09/28/17 13:41 14:18 14:20 WBC 7.4 RBC 4.71 Hgb 13.6 Hct 40.8 MCV 86.6 MCH 28.8 MCHC 33.2 RDW 13.7 Plt Count 87 L D MPV 12.5 H Neut % (Auto) 90.2 H Lymph % (Auto) 5.5 L Benson % (Auto) 4.0 Eos % (Auto) 0.0 Baso % (Auto) 0.3 Neut # (Auto) 6.7 Lymph # (Auto) 0.4 L Benson # (Auto) 0.3 Eos # (Auto) 0.0 Baso # (Auto) 0.0 Neutrophils % (Manual) 83 H Band Neutrophils % 6 H Lymphocytes % (Manual) 6 L Monocytes % (Manual) 5 Platelet Estimate Markedly decreased L Large Platelets Present Anisocytosis (manual) Slight Microcytosis (manual) Slight PT INR pO2 39 VBG pH 7.46 H VBG pCO2 31 L VBG HCO3 23.7 VBG Total CO2 23.0 VBG O2 Sat (Calc) 82.2 H VBG Base Excess -0.9 L VBG Potassium 3.7 Sodium 134.0 Chloride 102.0 Glucose 154 H Lactate 2.0 FiO2 21.0 Blood Gas Comments Lac=2.0 Crit Value Called To kaycee Ward Crit Value Called By Crit Value Read Back Y Blood Gas Notified Time 1347 Potassium Carbon Dioxide Anion Gap BUN Creatinine Est GFR ( Amer) Est GFR (Non-Af Amer) Random Glucose Calcium Total Bilirubin Direct Bilirubin AST ALT Alkaline Phosphatase Total Protein Albumin Globulin Albumin/Globulin Ratio Venous Blood Potassium 3.7 Urine Color Urine Clarity Urine pH Ur Specific [place] Urine Protein Urine Glucose (UA) Urine Ketones Urine Blood Urine Nitrate Urine Bilirubin Urine Urobilinogen Ur Leukocyte Esterase Urine RBC (Auto) Urine Microscopic WBC Urine Bacteria Fluid Type Spinal fluid CSF Volume 2 H CSF Appearance Clear/colorless CSF WBC 2.0 CSF RBC 0.0 CSF Total Cell Counted 5 H CSF Lymphocytes 4.0 H CSF Monos/Macrophages 1 H CSF Comment Tube #4 CSF Glucose CSF Total Protein CSF VDRL Urine Opiates Screen Urine Methadone Screen Ur Barbiturates Screen Ur Phencyclidine Scrn Ur Amphetamines Screen U Benzodiazepines Scrn U Oth Cocaine Metabols U Cannabinoids Screen Hepatitis A IgM Ab Hep Bs Antigen Hep B Core IgM Ab Hepatitis C Antibody HSV Source Description HIV-1 Ab Rapid Screen Influenza Typ A,B (EIA) 09/28/17 09/28/17 09/28/17 14:20 14:40 14:40 WBC RBC Hgb Hct MCV MCH MCHC RDW Plt Count MPV Neut % (Auto) Lymph % (Auto) Benson % (Auto) Eos % (Auto) Baso % (Auto) Neut # (Auto) Lymph # (Auto) Benson # (Auto) Eos # (Auto) Baso # (Auto) Neutrophils % (Manual) Band Neutrophils % Lymphocytes % (Manual) Monocytes % (Manual) Platelet Estimate Large Platelets Anisocytosis (manual) Microcytosis (manual) PT INR pO2 VBG pH VBG pCO2 VBG HCO3 VBG Total CO2 VBG O2 Sat (Calc) VBG Base Excess VBG Potassium Sodium 137 Chloride 101 Glucose Lactate FiO2 Blood Gas Comments Crit Value Called To Crit Value Called By Crit Value Read Back Blood Gas Notified Time Potassium 3.8 Carbon Dioxide 20 L Anion Gap 20 BUN 12 Creatinine 0.8 Est GFR ( Amer) > 60 Est GFR (Non-Af Amer) > 60 Random Glucose 134 H Calcium 9.4 Total Bilirubin 1.1 Direct Bilirubin AST 142 H D ALT 103 H D Alkaline Phosphatase 127 H D Total Protein 8.3 H Albumin 4.0 Globulin 4.3 H Albumin/Globulin Ratio 0.9 L Venous Blood Potassium Urine Color Urine Clarity Urine pH Ur Specific [place] Urine Protein Urine Glucose (UA) Urine Ketones Urine Blood Urine Nitrate Urine Bilirubin Urine Urobilinogen Ur Leukocyte Esterase Urine RBC (Auto) Urine Microscopic WBC Urine Bacteria Fluid Type Spinal fluid CSF Volume 2 H CSF Appearance Clear/colorless CSF WBC 4.0 CSF RBC 2.0 H CSF Total Cell Counted 15 H CSF Lymphocytes 13.0 H CSF Monos/Macrophages 2 H CSF Comment CSF Glucose 81 H CSF Total Protein CSF VDRL Urine Opiates Screen Urine Methadone Screen Ur Barbiturates Screen Ur Phencyclidine Scrn Ur Amphetamines Screen U Benzodiazepines Scrn U Oth Cocaine Metabols U Cannabinoids Screen Hepatitis A IgM Ab Hep Bs Antigen Hep B Core IgM Ab Hepatitis C Antibody HSV Source Description HIV-1 Ab Rapid Screen Influenza Typ A,B (EIA) 09/28/17 09/28/17 09/28/17 14:40 14:40 14:40 WBC RBC Hgb Hct MCV MCH MCHC RDW Plt Count MPV Neut % (Auto) Lymph % (Auto) Benson % (Auto) Eos % (Auto) Baso % (Auto) Neut # (Auto) Lymph # (Auto) Benson # (Auto) Eos # (Auto) Baso # (Auto) Neutrophils % (Manual) Band Neutrophils % Lymphocytes % (Manual) Monocytes % (Manual) Platelet Estimate Large Platelets Anisocytosis (manual) Microcytosis (manual) PT INR pO2 VBG pH VBG pCO2 VBG HCO3 VBG Total CO2 VBG O2 Sat (Calc) VBG Base Excess VBG Potassium Sodium Chloride Glucose Lactate FiO2 Blood Gas Comments Crit Value Called To Crit Value Called By Crit Value Read Back Blood Gas Notified Time Potassium Carbon Dioxide Anion Gap BUN Creatinine Est GFR ( Amer) Est GFR (Non-Af Amer) Random Glucose Calcium Total Bilirubin Direct Bilirubin AST ALT Alkaline Phosphatase Total Protein Albumin Globulin Albumin/Globulin Ratio Venous Blood Potassium Urine Color Urine Clarity Urine pH Ur Specific [place] Urine Protein Urine Glucose (UA) Urine Ketones Urine Blood Urine Nitrate Urine Bilirubin Urine Urobilinogen Ur Leukocyte Esterase Urine RBC (Auto) Urine Microscopic WBC Urine Bacteria Fluid Type CSF Volume CSF Appearance CSF WBC CSF RBC CSF Total Cell Counted CSF Lymphocytes CSF Monos/Macrophages CSF Comment CSF Glucose CSF Total Protein 44.0 CSF VDRL Nonreactive Urine Opiates Screen Urine Methadone Screen Ur Barbiturates Screen Ur Phencyclidine Scrn Ur Amphetamines Screen U Benzodiazepines Scrn U Oth Cocaine Metabols U Cannabinoids Screen Hepatitis A IgM Ab Hep Bs Antigen Hep B Core IgM Ab Hepatitis C Antibody HSV Source Description Fluid HIV-1 Ab Rapid Screen Influenza Typ A,B (EIA) 09/28/17 09/28/17 09/29/17 14:42 16:55 05:55 WBC 7.0 RBC 4.39 L Hgb 12.8 Hct 38.1 MCV 86.7 MCH 29.2 MCHC 33.7 RDW 14.0 Plt Count 86 L MPV Neut % (Auto) Lymph % (Auto) Benson % (Auto) Eos % (Auto) Baso % (Auto) Neut # (Auto) Lymph # (Auto) Benson # (Auto) Eos # (Auto) Baso # (Auto) Neutrophils % (Manual) Band Neutrophils % Lymphocytes % (Manual) Monocytes % (Manual) Platelet Estimate Large Platelets Anisocytosis (manual) Microcytosis (manual) PT INR pO2 VBG pH VBG pCO2 VBG HCO3 VBG Total CO2 VBG O2 Sat (Calc) VBG Base Excess VBG Potassium Sodium Chloride Glucose Lactate FiO2 Blood Gas Comments Crit Value Called To Crit Value Called By Crit Value Read Back Blood Gas Notified Time Potassium Carbon Dioxide Anion Gap BUN Creatinine Est GFR ( Amer) Est GFR (Non-Af Amer) Random Glucose Calcium Total Bilirubin Direct Bilirubin AST ALT Alkaline Phosphatase Total Protein Albumin Globulin Albumin/Globulin Ratio Venous Blood Potassium Urine Color Yellow Urine Clarity Slighty-cloudy Urine pH 6.0 Ur Specific [place] 1.013 Urine Protein 100 Urine Glucose (UA) Neg Urine Ketones Negative Urine Blood Negative Urine Nitrate Negative Urine Bilirubin Negative Urine Urobilinogen 0.2-1.0 Ur Leukocyte Esterase Neg Urine RBC (Auto) 3 Urine Microscopic WBC 2 Urine Bacteria Rare Fluid Type CSF Volume CSF Appearance CSF WBC CSF RBC CSF Total Cell Counted CSF Lymphocytes CSF Monos/Macrophages CSF Comment CSF Glucose CSF Total Protein CSF VDRL Urine Opiates Screen Urine Methadone Screen Ur Barbiturates Screen Ur Phencyclidine Scrn Ur Amphetamines Screen U Benzodiazepines Scrn U Oth Cocaine Metabols U Cannabinoids Screen Hepatitis A IgM Ab Hep Bs Antigen Hep B Core IgM Ab Hepatitis C Antibody HSV Source Description HIV-1 Ab Rapid Screen Influenza Typ A,B (EIA) Negative for flu a/b 09/29/17 09/29/17 09/29/17 05:55 09:12 09:12 WBC RBC Hgb Hct MCV MCH MCHC RDW Plt Count MPV Neut % (Auto) Lymph % (Auto) Benson % (Auto) Eos % (Auto) Baso % (Auto) Neut # (Auto) Lymph # (Auto) Benson # (Auto) Eos # (Auto) Baso # (Auto) Neutrophils % (Manual) Band Neutrophils % Lymphocytes % (Manual) Monocytes % (Manual) Platelet Estimate Large Platelets Anisocytosis (manual) Microcytosis (manual) PT INR pO2 VBG pH VBG pCO2 VBG HCO3 VBG Total CO2 VBG O2 Sat (Calc) VBG Base Excess VBG Potassium Sodium 139 Chloride 104 Glucose Lactate FiO2 Blood Gas Comments Crit Value Called To Crit Value Called By Crit Value Read Back Blood Gas Notified Time Potassium 3.8 Carbon Dioxide 24 Anion Gap 15 BUN 8 L Creatinine 0.9 Est GFR ( Amer) > 60 Est GFR (Non-Af Amer) > 60 Random Glucose 118 H Calcium 8.5 Total Bilirubin 0.6 Direct Bilirubin 0.6 H AST 98 H D ALT 97 H Alkaline Phosphatase 114 Total Protein 7.2 Albumin 3.5 Globulin 3.8 Albumin/Globulin Ratio 0.9 L Venous Blood Potassium Urine Color Urine Clarity Urine pH Ur Specific [place] Urine Protein Urine Glucose (UA) Urine Ketones Urine Blood Urine Nitrate Urine Bilirubin Urine Urobilinogen Ur Leukocyte Esterase Urine RBC (Auto) Urine Microscopic WBC Urine Bacteria Fluid Type CSF Volume CSF Appearance CSF WBC CSF RBC CSF Total Cell Counted CSF Lymphocytes CSF Monos/Macrophages CSF Comment CSF Glucose CSF Total Protein CSF VDRL Urine Opiates Screen Urine Methadone Screen Ur Barbiturates Screen Ur Phencyclidine Scrn Ur Amphetamines Screen U Benzodiazepines Scrn U Oth Cocaine Metabols U Cannabinoids Screen Hepatitis A IgM Ab Hep Bs Antigen Hep B Core IgM Ab Hepatitis C Antibody HSV Source Description HIV-1 Ab Rapid Screen Non reactive Influenza Typ A,B (EIA) 09/29/17 09/29/17 09/29/17 10:23 11:50 14:31 WBC RBC Hgb Hct MCV MCH MCHC RDW Plt Count MPV Neut % (Auto) Lymph % (Auto) Benson % (Auto) Eos % (Auto) Baso % (Auto) Neut # (Auto) Lymph # (Auto) Benson # (Auto) Eos # (Auto) Baso # (Auto) Neutrophils % (Manual) Band Neutrophils % Lymphocytes % (Manual) Monocytes % (Manual) Platelet Estimate Large Platelets Anisocytosis (manual) Microcytosis (manual) PT 14.3 H INR 1.3 H pO2 VBG pH VBG pCO2 VBG HCO3 VBG Total CO2 VBG O2 Sat (Calc) VBG Base Excess VBG Potassium Sodium Chloride Glucose Lactate FiO2 Blood Gas Comments Crit Value Called To Crit Value Called By Crit Value Read Back Blood Gas Notified Time Potassium Carbon Dioxide Anion Gap BUN Creatinine Est GFR ( Amer) Est GFR (Non-Af Amer) Random Glucose Calcium Total Bilirubin Direct Bilirubin AST ALT Alkaline Phosphatase Total Protein Albumin Globulin Albumin/Globulin Ratio Venous Blood Potassium Urine Color Urine Clarity Urine pH Ur Specific [place] Urine Protein Urine Glucose (UA) Urine Ketones Urine Blood Urine Nitrate Urine Bilirubin Urine Urobilinogen Ur Leukocyte Esterase Urine RBC (Auto) Urine Microscopic WBC Urine Bacteria Fluid Type CSF Volume CSF Appearance CSF WBC CSF RBC CSF Total Cell Counted CSF Lymphocytes CSF Monos/Macrophages CSF Comment CSF Glucose CSF Total Protein CSF VDRL Urine Opiates Screen Negative Urine Methadone Screen Negative Ur Barbiturates Screen Negative Ur Phencyclidine Scrn Negative Ur Amphetamines Screen Negative U Benzodiazepines Scrn Negative U Oth Cocaine Metabols Negative U Cannabinoids Screen Negative Hepatitis A IgM Ab Negative Hep Bs Antigen Negative Hep B Core IgM Ab Negative Hepatitis C Antibody Negative HSV Source Description HIV-1 Ab Rapid Screen Influenza Typ A,B (EIA) Microbiology 09/28/17 14:42 Blood-Venous Blood Culture - Preliminary NO GROWTH AFTER 48 HOURS 09/28/17 14:20 Blood-Venous Blood Culture - Preliminary NO GROWTH AFTER 48 HOURS 09/28/17 14:40 Cerebral Spinal Fluid Gram Stain - Final 09/28/17 14:40 Cerebral Spinal Fluid CSF Culture - Preliminary NO GROWTH AFTER 2 DAYS 09/29/17 16:39 Sputum Gram Stain - Final 09/29/17 16:39 Sputum Sputum Culture - Final Assessment and Plan (1) Pneumonia Status: Acute (2) Fever Status: Acute - Assessment and Plan (Free Text) Assessment: A/P- 37 year old male with no PMH admitted with fever .chills and found to have LLL pneumonia. afebrile today normal wbc count CSF gram stain and cx- Ngetaive CSF cell count clear and only 2 wbc and mostly lymph not c/w bacterial meningitis. Chest Ct- left lower lobe infiltrate and possible effusion ( as per report). rapid HIV- negative' Influenza- Negative blood cx- neg x 2 UA- negative Hepatitis profile - Negative sputum cx- contaminated by oropharyngeal as per micro Plan- await urine legionella AG. await mycoplasma serology. advise to continue with empiric acyclovir pending CSF HSV PCR result. advise to continue with zithromax to cover for atypical lung pathogens. advise to continue with Iv zosyn day #2 for PNA. monitor temps closely. check another sputum cx.
[2017-09-30] MEDS: Sodium Chloride 0.9% 1,000 ML IV SCH ×2 (13:00→23:35)
[2017-09-30] MEDS ORDERED: Sodium Chloride 3% for Inhalation 4 ML VIAL.NEB IH PRN (16:23)
--- NOTE | 2017-09-30 18:42 | CP.PCM.PN ---
Subjective - Date & Time of Evaluation Date of Evaluation: 09/30/17 Time of Evaluation: 11:30 - Subjective Subjective: Patient seen and examined. Admitted feeling better and has been afebrile since morning Objective - Vital Signs/Intake and Output Vital Signs (last 24 hours): Temp Pulse Resp BP Pulse Ox 99 F 77 18 146/93 H 95 09/30/17 16:49 09/30/17 16:49 09/30/17 16:49 09/30/17 16:49 09/30/17 16:49 - Medications Medications: Current Medications Acetaminophen (Tylenol 325mg Tab) 650 mg PO Q6 PRN PRN Reason: Fever >100.4 F Last Admin: 09/29/17 15:44 Dose: 650 mg Guaifenesin (Robitussin) 200 mg PO Q6 PRN PRN Reason: Cough Last Admin: 09/30/17 09:09 Dose: 200 mg Azithromycin 500 mg/ Sodium (Chloride) 250 mls @ 250 mls/hr IVPB DAILY CHERISE PRN Reason: Protocol Last Admin: 09/30/17 09:04 Dose: 250 mls/hr Sodium Chloride (Sodium Chloride 0.9%) 1,000 mls @ 75 mls/hr IV .[id number] CHERISE Last Admin: 09/30/17 13:00 Dose: 75 mls/hr Acyclovir 800 mg/ Sodium (Chloride) 250 mls @ 250 mls/hr IVPB Q8 CHERISE PRN Reason: Protocol Last Admin: 09/30/17 17:19 Dose: 250 mls/hr Piperacillin Sod/Tazobactam (Sod 3.375 gm/ Sodium Chloride) 100 mls @ 100 mls/ hr IVPB Q6 CHERISE PRN Reason: Protocol Last Admin: 09/30/17 17:20 Dose: 100 mls/hr - Labs Labs: 09/29/17 05:55 09/29/17 05:55 PT 14.3 Seconds (9.8-13.1) H 09/29/17 10:23 INR 1.3 (0.9-1.2) H 09/29/17 10:23 - Constitutional Appears: No Acute Distress - Head Exam Head Exam: ATRAUMATIC - Eye Exam Eye Exam: absent: Scleral icterus - ENT Exam ENT Exam: Mucous Membranes Moist - Neck Exam Neck Exam: absent: Meningismus - Respiratory Exam Respiratory Exam: absent: Rales, Rhonchi, Wheezes, Respiratory Distress - Cardiovascular Exam Cardiovascular Exam: REGULAR RHYTHM, +S1, +S2 - GI/Abdominal Exam GI & Abdominal Exam: Soft. absent: Tenderness - Rectal Exam Rectal Exam: Deferred - Extremities Exam Extremities Exam: absent: Calf Tenderness, Pedal Edema - Back Exam Back Exam: absent: tenderness - Neurological Exam Neurological Exam: Alert, Oriented x3 - Psychiatric Exam Psychiatric exam: Normal Affect - Skin Skin Exam: Dry, Intact Assessment and Plan - Assessment and Plan (Free Text) Assessment: 37 yo male with no significant PMH came in with persistent fever of 3 days duration accompanied with headache, general malaise, cough and diarrhea. LP was done in the ER but did not show evidence of meningitis. CXray was questionable for LLL infiltrate. 1. Persistent Fever afebrile since this morning and no leukocytosis CT scan of the chest confirmed LLL infiltrate Hepatitis profile: negative continue Rocephin, Zithromax and Acyclovir ID consult with Dr Archer appreciated 2. Questionable Small SAH on CT scan of head repeat CT scan of head ruled out SAH although clear CSF already ruled it out 3. DVT prophylaxis venodyne boots while in bed
[2017-10-01] MEDS: Piperacillin/Tazobact 3.375 GM in Sodium Chloride 0.9% 100 ML IVPB SCH ×4 (03:44→22:58)
[2017-10-01 08:06] LABS: BASO % 0.7 % (0.0-2.0); EOS % 0.5 % (0.0-4.0); HEMOGLOBIN 12.7 g/dL (12.0-18.0); LYMPH # 1.2 K/uL (1.0-4.3); LYMPH % 20.7 % (20.0-40.0); MEAN CELL VOLUME 85.9 fl (80.0-94.0); MEAN CORPUSCULAR HEMOGLOBIN 29.1 pg (27.0-31.0); MEAN CORPUSCULAR HGB CONC 33.9 g/dL (33.0-37.0); MEAN PLATELET VOLUME 12.2 fl (7.2-11.7); MONO # 0.5 K/uL (0.0-0.8); MONO % 9.1 % (0.0-10.0); NEUT # 3.9 K/uL (1.8-7.0); NRBC % 0.1 % (0.0-0.0); RBC 4.38 Mil/uL (4.40-5.90); RED CELL DISTRIBUTION WIDTH 14.2 % (11.5-14.5); WHITE BLOOD COUNT 5.7 K/uL (4.8-10.8)
[2017-10-01] MEDS: Azithromycin 500 MG in Sodium Chloride 0.9% 250 ML IVPB SCH (09:19)
--- NOTE | 2017-10-01 10:35 | CP.PCM.PN ---
Subjective - Date & Time of Evaluation Date of Evaluation: 10/01/17 Time of Evaluation: 10:33 - Subjective Subjective: Mr. Price was seen and examined at the bedside. He is alert, oriented in all spheres. He denies any headache, dizziness, lightheadedness, nausea, or vomiting. He claims of ambulating within his room in steady gait. He is able to follow simple commands. There was no untoward events overnight. Objective - Vital Signs/Intake and Output Vital Signs (last 24 hours): Temp Pulse Resp BP Pulse Ox 99.1 F 55 L 20 136/86 96 10/01/17 08:43 10/01/17 08:43 10/01/17 08:43 10/01/17 08:43 10/01/17 08:43 - Medications Medications: Current Medications Acetaminophen (Tylenol 325mg Tab) 650 mg PO Q6 PRN PRN Reason: Fever >100.4 F Last Admin: 09/29/17 15:44 Dose: 650 mg Guaifenesin (Robitussin) 200 mg PO Q6 PRN PRN Reason: Cough Last Admin: 09/30/17 09:09 Dose: 200 mg Azithromycin 500 mg/ Sodium (Chloride) 250 mls @ 250 mls/hr IVPB DAILY CHERISE PRN Reason: Protocol Last Admin: 10/01/17 09:19 Dose: 250 mls/hr Sodium Chloride (Sodium Chloride 0.9%) 1,000 mls @ 75 mls/hr IV .[id number] CHERISE Last Admin: 09/30/17 23:35 Dose: Not Given Acyclovir 800 mg/ Sodium (Chloride) 250 mls @ 250 mls/hr IVPB Q8 CHERISE PRN Reason: Protocol Last Admin: 10/01/17 09:12 Dose: 250 mls/hr Piperacillin Sod/Tazobactam (Sod 3.375 gm/ Sodium Chloride) 100 mls @ 100 mls/ hr IVPB Q6 CHERISE PRN Reason: Protocol Last Admin: 10/01/17 09:13 Dose: 100 mls/hr - Labs Labs: 10/01/17 07:54 09/29/17 05:55 PT 14.3 Seconds (9.8-13.1) H 09/29/17 10:23 INR 1.3 (0.9-1.2) H 09/29/17 10:23 - Constitutional Appears: No Acute Distress - Head Exam Head Exam: NORMAL INSPECTION - Eye Exam Pupil Exam: PERRL - Neurological Exam Neurological Exam: Alert, Awake, Oriented x3 Neuro motor strength exam: Left Upper Extremity: 5, Right Upper Extremity: 5, Left Lower Extremity: 5, Right Lower Extremity: 5 Additional comments: alert, oriented x3 follows simple commands, sensation is intact. Assessment and Plan (1) Viral encephalitis Assessment & Plan: Case discussed with Dr. Dickson, continue all current medical regimen. Recommend to follow any ID orders, CTA of the head and neck, hydration. Status: Acute
--- NOTE | 2017-10-01 11:07 | CP.PCM.PN ---
Subjective - Date & Time of Evaluation Date of Evaluation: 10/01/17 Time of Evaluation: 11:07 - Subjective Subjective: ID note- Patient seen and examined today. he denies any CHRISTINE today and denies any fever today but still has cough. Objective - Vital Signs/Intake and Output Vital Signs (last 24 hours): Temp Pulse Resp BP Pulse Ox 99.1 F 55 L 20 136/86 96 10/01/17 08:43 10/01/17 08:43 10/01/17 08:43 10/01/17 08:43 10/01/17 08:43 - Medications Medications: Current Medications Acetaminophen (Tylenol 325mg Tab) 650 mg PO Q6 PRN PRN Reason: Fever >100.4 F Last Admin: 09/29/17 15:44 Dose: 650 mg Guaifenesin (Robitussin) 200 mg PO Q6 PRN PRN Reason: Cough Last Admin: 09/30/17 09:09 Dose: 200 mg Azithromycin 500 mg/ Sodium (Chloride) 250 mls @ 250 mls/hr IVPB DAILY CHERISE PRN Reason: Protocol Last Admin: 10/01/17 09:19 Dose: 250 mls/hr Sodium Chloride (Sodium Chloride 0.9%) 1,000 mls @ 75 mls/hr IV .[id number] CHERISE Last Admin: 09/30/17 23:35 Dose: Not Given Acyclovir 800 mg/ Sodium (Chloride) 250 mls @ 250 mls/hr IVPB Q8 CHERISE PRN Reason: Protocol Last Admin: 10/01/17 09:12 Dose: 250 mls/hr Piperacillin Sod/Tazobactam (Sod 3.375 gm/ Sodium Chloride) 100 mls @ 100 mls/ hr IVPB Q6 CHERISE PRN Reason: Protocol Last Admin: 10/01/17 09:13 Dose: 100 mls/hr - Labs Labs: - Additional Findings Additional findings: - Constitutional Appears: No Acute Distress - Head Exam Head Exam: ATRAUMATIC - Eye Exam Eye Exam: EOMI, PERRL - ENT Exam ENT Exam: Normal Oropharynx - Neck Exam Neck exam: Positive for: Full Rom Additional comments: Supple - Respiratory Exam Respiratory Exam: NORMAL BREATHING PATTERN Additional comments: mild crackles at left base No wheezing - Cardiovascular Exam Cardiovascular Exam: RRR, +S1, +S2 - GI/Abdominal Exam GI & Abdominal Exam: Normal Bowel Sounds, Soft Additional comments: NT, ND - Extremities Exam Extremities exam: Positive for: normal inspection - Neurological Exam Neurological exam: Alert, Oriented x 3 Laboratory Results - last 72 hr 09/28/17 09/28/17 09/28/17 13:41 14:18 14:20 WBC 7.4 RBC 4.71 Hgb 13.6 Hct 40.8 MCV 86.6 MCH 28.8 MCHC 33.2 RDW 13.7 Plt Count 87 L D MPV 12.5 H Neut % (Auto) 90.2 H Lymph % (Auto) 5.5 L [place] % (Auto) 4.0 Eos % (Auto) 0.0 Baso % (Auto) 0.3 Neut # (Auto) 6.7 Lymph # (Auto) 0.4 L [place] # (Auto) 0.3 Eos # (Auto) 0.0 Baso # (Auto) 0.0 Neutrophils % (Manual) 83 H Band Neutrophils % 6 H Lymphocytes % (Manual) 6 L Monocytes % (Manual) 5 Platelet Estimate Markedly decreased L Large Platelets Present Anisocytosis (manual) Slight Microcytosis (manual) Slight PT INR pO2 39 VBG pH 7.46 H VBG pCO2 31 L VBG HCO3 23.7 VBG Total CO2 23.0 VBG O2 Sat (Calc) 82.2 H VBG Base Excess -0.9 L VBG Potassium 3.7 Sodium 134.0 Chloride 102.0 Glucose 154 H Lactate 2.0 FiO2 21.0 Blood Gas Comments Lac=2.0 Crit Value Called To kaycee Ward Crit Value Called By Crit Value Read Back Y Blood Gas Notified Time 1347 Potassium Carbon Dioxide Anion Gap BUN Creatinine Est GFR ( Amer) Est GFR (Non-Af Amer) Random Glucose Calcium Total Bilirubin Direct Bilirubin AST ALT Alkaline Phosphatase Total Protein Albumin Globulin Albumin/Globulin Ratio Venous Blood Potassium 3.7 Urine Color Urine Clarity Urine pH Ur Specific [place] Urine Protein Urine Glucose (UA) Urine Ketones Urine Blood Urine Nitrate Urine Bilirubin Urine Urobilinogen Ur Leukocyte Esterase Urine RBC (Auto) Urine Microscopic WBC Urine Bacteria Fluid Type Spinal fluid CSF Volume 2 H CSF Appearance Clear/colorless CSF WBC 2.0 CSF RBC 0.0 CSF Total Cell Counted 5 H CSF Lymphocytes 4.0 H CSF Monos/Macrophages 1 H CSF Comment Tube #4 CSF Glucose CSF Total Protein CSF VDRL Urine Opiates Screen Urine Methadone Screen Ur Barbiturates Screen Ur Phencyclidine Scrn Ur Amphetamines Screen U Benzodiazepines Scrn U Oth Cocaine Metabols U Cannabinoids Screen Hepatitis A IgM Ab Hep Bs Antigen Hep B Core IgM Ab Hepatitis C Antibody HSV Source Description HIV-1 Ab Rapid Screen Influenza Typ A,B (EIA) Ur L.pneumophila Ag 09/28/17 09/28/17 09/28/17 14:20 14:40 14:40 WBC RBC Hgb Hct MCV MCH MCHC RDW Plt Count MPV Neut % (Auto) Lymph % (Auto) [place] % (Auto) Eos % (Auto) Baso % (Auto) Neut # (Auto) Lymph # (Auto) [place] # (Auto) Eos # (Auto) Baso # (Auto) Neutrophils % (Manual) Band Neutrophils % Lymphocytes % (Manual) Monocytes % (Manual) Platelet Estimate Large Platelets Anisocytosis (manual) Microcytosis (manual) PT INR pO2 VBG pH VBG pCO2 VBG HCO3 VBG Total CO2 VBG O2 Sat (Calc) VBG Base Excess VBG Potassium Sodium 137 Chloride 101 Glucose Lactate FiO2 Blood Gas Comments Crit Value Called To Crit Value Called By Crit Value Read Back Blood Gas Notified Time Potassium 3.8 Carbon Dioxide 20 L Anion Gap 20 BUN 12 Creatinine 0.8 Est GFR ( Amer) > 60 Est GFR (Non-Af Amer) > 60 Random Glucose 134 H Calcium 9.4 Total Bilirubin 1.1 Direct Bilirubin AST 142 H D ALT 103 H D Alkaline Phosphatase 127 H D Total Protein 8.3 H Albumin 4.0 Globulin 4.3 H Albumin/Globulin Ratio 0.9 L Venous Blood Potassium Urine Color Urine Clarity Urine pH Ur Specific [place] Urine Protein Urine Glucose (UA) Urine Ketones Urine Blood Urine Nitrate Urine Bilirubin Urine Urobilinogen Ur Leukocyte Esterase Urine RBC (Auto) Urine Microscopic WBC Urine Bacteria Fluid Type Spinal fluid CSF Volume 2 H CSF Appearance Clear/colorless CSF WBC 4.0 CSF RBC 2.0 H CSF Total Cell Counted 15 H CSF Lymphocytes 13.0 H CSF Monos/Macrophages 2 H CSF Comment CSF Glucose 81 H CSF Total Protein CSF VDRL Urine Opiates Screen Urine Methadone Screen Ur Barbiturates Screen Ur Phencyclidine Scrn Ur Amphetamines Screen U Benzodiazepines Scrn U Oth Cocaine Metabols U Cannabinoids Screen Hepatitis A IgM Ab Hep Bs Antigen Hep B Core IgM Ab Hepatitis C Antibody HSV Source Description HIV-1 Ab Rapid Screen Influenza Typ A,B (EIA) Ur L.pneumophila Ag 09/28/17 09/28/17 09/28/17 14:40 14:40 14:40 WBC RBC Hgb Hct MCV MCH MCHC RDW Plt Count MPV Neut % (Auto) Lymph % (Auto) [place] % (Auto) Eos % (Auto) Baso % (Auto) Neut # (Auto) Lymph # (Auto) [place] # (Auto) Eos # (Auto) Baso # (Auto) Neutrophils % (Manual) Band Neutrophils % Lymphocytes % (Manual) Monocytes % (Manual) Platelet Estimate Large Platelets Anisocytosis (manual) Microcytosis (manual) PT INR pO2 VBG pH VBG pCO2 VBG HCO3 VBG Total CO2 VBG O2 Sat (Calc) VBG Base Excess VBG Potassium Sodium Chloride Glucose Lactate FiO2 Blood Gas Comments Crit Value Called To Crit Value Called By Crit Value Read Back Blood Gas Notified Time Potassium Carbon Dioxide Anion Gap BUN Creatinine Est GFR ( Amer) Est GFR (Non-Af Amer) Random Glucose Calcium Total Bilirubin Direct Bilirubin AST ALT Alkaline Phosphatase Total Protein Albumin Globulin Albumin/Globulin Ratio Venous Blood Potassium Urine Color Urine Clarity Urine pH Ur Specific [place] Urine Protein Urine Glucose (UA) Urine Ketones Urine Blood Urine Nitrate Urine Bilirubin Urine Urobilinogen Ur Leukocyte Esterase Urine RBC (Auto) Urine Microscopic WBC Urine Bacteria Fluid Type CSF Volume CSF Appearance CSF WBC CSF RBC CSF Total Cell Counted CSF Lymphocytes CSF Monos/Macrophages CSF Comment CSF Glucose CSF Total Protein 44.0 CSF VDRL Nonreactive Urine Opiates Screen Urine Methadone Screen Ur Barbiturates Screen Ur Phencyclidine Scrn Ur Amphetamines Screen U Benzodiazepines Scrn U Oth Cocaine Metabols U Cannabinoids Screen Hepatitis A IgM Ab Hep Bs Antigen Hep B Core IgM Ab Hepatitis C Antibody HSV Source Description Fluid HIV-1 Ab Rapid Screen Influenza Typ A,B (EIA) Ur L.pneumophila Ag 09/28/17 09/28/17 09/29/17 14:42 16:55 05:55 WBC 7.0 RBC 4.39 L Hgb 12.8 Hct 38.1 MCV 86.7 MCH 29.2 MCHC 33.7 RDW 14.0 Plt Count 86 L MPV Neut % (Auto) Lymph % (Auto) [place] % (Auto) Eos % (Auto) Baso % (Auto) Neut # (Auto) Lymph # (Auto) [place] # (Auto) Eos # (Auto) Baso # (Auto) Neutrophils % (Manual) Band Neutrophils % Lymphocytes % (Manual) Monocytes % (Manual) Platelet Estimate Large Platelets Anisocytosis (manual) Microcytosis (manual) PT INR pO2 VBG pH VBG pCO2 VBG HCO3 VBG Total CO2 VBG O2 Sat (Calc) VBG Base Excess VBG Potassium Sodium Chloride Glucose Lactate FiO2 Blood Gas Comments Crit Value Called To Crit Value Called By Crit Value Read Back Blood Gas Notified Time Potassium Carbon Dioxide Anion Gap BUN Creatinine Est GFR ( Amer) Est GFR (Non-Af Amer) Random Glucose Calcium Total Bilirubin Direct Bilirubin AST ALT Alkaline Phosphatase Total Protein Albumin Globulin Albumin/Globulin Ratio Venous Blood Potassium Urine Color Yellow Urine Clarity Slighty-cloudy Urine pH 6.0 Ur Specific [place] 1.013 Urine Protein 100 Urine Glucose (UA) Neg Urine Ketones Negative Urine Blood Negative Urine Nitrate Negative Urine Bilirubin Negative Urine Urobilinogen 0.2-1.0 Ur Leukocyte Esterase Neg Urine RBC (Auto) 3 Urine Microscopic WBC 2 Urine Bacteria Rare Fluid Type CSF Volume CSF Appearance CSF WBC CSF RBC CSF Total Cell Counted CSF Lymphocytes CSF Monos/Macrophages CSF Comment CSF Glucose CSF Total Protein CSF VDRL Urine Opiates Screen Urine Methadone Screen Ur Barbiturates Screen Ur Phencyclidine Scrn Ur Amphetamines Screen U Benzodiazepines Scrn U Oth Cocaine Metabols U Cannabinoids Screen Hepatitis A IgM Ab Hep Bs Antigen Hep B Core IgM Ab Hepatitis C Antibody HSV Source Description HIV-1 Ab Rapid Screen Influenza Typ A,B (EIA) Negative for flu a/b Ur L.pneumophila Ag 09/29/17 09/29/17 09/29/17 05:55 09:12 09:12 WBC RBC Hgb Hct MCV MCH MCHC RDW Plt Count MPV Neut % (Auto) Lymph % (Auto) [place] % (Auto) Eos % (Auto) Baso % (Auto) Neut # (Auto) Lymph # (Auto) [place] # (Auto) Eos # (Auto) Baso # (Auto) Neutrophils % (Manual) Band Neutrophils % Lymphocytes % (Manual) Monocytes % (Manual) Platelet Estimate Large Platelets Anisocytosis (manual) Microcytosis (manual) PT INR pO2 VBG pH VBG pCO2 VBG HCO3 VBG Total CO2 VBG O2 Sat (Calc) VBG Base Excess VBG Potassium Sodium 139 Chloride 104 Glucose Lactate FiO2 Blood Gas Comments Crit Value Called To Crit Value Called By Crit Value Read Back Blood Gas Notified Time Potassium 3.8 Carbon Dioxide 24 Anion Gap 15 BUN 8 L Creatinine 0.9 Est GFR ( Amer) > 60 Est GFR (Non-Af Amer) > 60 Random Glucose 118 H Calcium 8.5 Total Bilirubin 0.6 Direct Bilirubin 0.6 H AST 98 H D ALT 97 H Alkaline Phosphatase 114 Total Protein 7.2 Albumin 3.5 Globulin 3.8 Albumin/Globulin Ratio 0.9 L Venous Blood Potassium Urine Color Urine Clarity Urine pH Ur Specific [place] Urine Protein Urine Glucose (UA) Urine Ketones Urine Blood Urine Nitrate Urine Bilirubin Urine Urobilinogen Ur Leukocyte Esterase Urine RBC (Auto) Urine Microscopic WBC Urine Bacteria Fluid Type CSF Volume CSF Appearance CSF WBC CSF RBC CSF Total Cell Counted CSF Lymphocytes CSF Monos/Macrophages CSF Comment CSF Glucose CSF Total Protein CSF VDRL Urine Opiates Screen Urine Methadone Screen Ur Barbiturates Screen Ur Phencyclidine Scrn Ur Amphetamines Screen U Benzodiazepines Scrn U Oth Cocaine Metabols U Cannabinoids Screen Hepatitis A IgM Ab Hep Bs Antigen Hep B Core IgM Ab Hepatitis C Antibody HSV Source Description HIV-1 Ab Rapid Screen Non reactive Influenza Typ A,B (EIA) Ur L.pneumophila Ag 09/29/17 09/29/17 09/29/17 10:23 11:04 11:50 WBC RBC Hgb Hct MCV MCH MCHC RDW Plt Count MPV Neut % (Auto) Lymph % (Auto) [place] % (Auto) Eos % (Auto) Baso % (Auto) Neut # (Auto) Lymph # (Auto) [place] # (Auto) Eos # (Auto) Baso # (Auto) Neutrophils % (Manual) Band Neutrophils % Lymphocytes % (Manual) Monocytes % (Manual) Platelet Estimate Large Platelets Anisocytosis (manual) Microcytosis (manual) PT 14.3 H INR 1.3 H pO2 VBG pH VBG pCO2 VBG HCO3 VBG Total CO2 VBG O2 Sat (Calc) VBG Base Excess VBG Potassium Sodium Chloride Glucose Lactate FiO2 Blood Gas Comments Crit Value Called To Crit Value Called By Crit Value Read Back Blood Gas Notified Time Potassium Carbon Dioxide Anion Gap BUN Creatinine Est GFR ( Amer) Est GFR (Non-Af Amer) Random Glucose Calcium Total Bilirubin Direct Bilirubin AST ALT Alkaline Phosphatase Total Protein Albumin Globulin Albumin/Globulin Ratio Venous Blood Potassium Urine Color Urine Clarity Urine pH Ur Specific [place] Urine Protein Urine Glucose (UA) Urine Ketones Urine Blood Urine Nitrate Urine Bilirubin Urine Urobilinogen Ur Leukocyte Esterase Urine RBC (Auto) Urine Microscopic WBC Urine Bacteria Fluid Type CSF Volume CSF Appearance CSF WBC CSF RBC CSF Total Cell Counted CSF Lymphocytes CSF Monos/Macrophages CSF Comment CSF Glucose CSF Total Protein CSF VDRL Urine Opiates Screen Urine Methadone Screen Ur Barbiturates Screen Ur Phencyclidine Scrn Ur Amphetamines Screen U Benzodiazepines Scrn U Oth Cocaine Metabols U Cannabinoids Screen Hepatitis A IgM Ab Negative Hep Bs Antigen Negative Hep B Core IgM Ab Negative Hepatitis C Antibody Negative HSV Source Description HIV-1 Ab Rapid Screen Influenza Typ A,B (EIA) Ur L.pneumophila Ag Negative 09/29/17 10/01/17 14:31 07:54 WBC 5.7 RBC 4.38 L Hgb 12.7 Hct 37.6 MCV 85.9 MCH 29.1 MCHC 33.9 RDW 14.2 Plt Count 133 MPV 12.2 H Neut % (Auto) 69.0 Lymph % (Auto) 20.7 [place] % (Auto) 9.1 Eos % (Auto) 0.5 Baso % (Auto) 0.7 Neut # (Auto) 3.9 Lymph # (Auto) 1.2 [place] # (Auto) 0.5 Eos # (Auto) 0.0 Baso # (Auto) 0.0 Neutrophils % (Manual) Band Neutrophils % Lymphocytes % (Manual) Monocytes % (Manual) Platelet Estimate Large Platelets Anisocytosis (manual) Microcytosis (manual) PT INR pO2 VBG pH VBG pCO2 VBG HCO3 VBG Total CO2 VBG O2 Sat (Calc) VBG Base Excess VBG Potassium Sodium Chloride Glucose Lactate FiO2 Blood Gas Comments Crit Value Called To Crit Value Called By Crit Value Read Back Blood Gas Notified Time Potassium Carbon Dioxide Anion Gap BUN Creatinine Est GFR ( Amer) Est GFR (Non-Af Amer) Random Glucose Calcium Total Bilirubin Direct Bilirubin AST ALT Alkaline Phosphatase Total Protein Albumin Globulin Albumin/Globulin Ratio Venous Blood Potassium Urine Color Urine Clarity Urine pH Ur Specific [place] Urine Protein Urine Glucose (UA) Urine Ketones Urine Blood Urine Nitrate Urine Bilirubin Urine Urobilinogen Ur Leukocyte Esterase Urine RBC (Auto) Urine Microscopic WBC Urine Bacteria Fluid Type CSF Volume CSF Appearance CSF WBC CSF RBC CSF Total Cell Counted CSF Lymphocytes CSF Monos/Macrophages CSF Comment CSF Glucose CSF Total Protein CSF VDRL Urine Opiates Screen Negative Urine Methadone Screen Negative Ur Barbiturates Screen Negative Ur Phencyclidine Scrn Negative Ur Amphetamines Screen Negative U Benzodiazepines Scrn Negative U Oth Cocaine Metabols Negative U Cannabinoids Screen Negative Hepatitis A IgM Ab Hep Bs Antigen Hep B Core IgM Ab Hepatitis C Antibody HSV Source Description HIV-1 Ab Rapid Screen Influenza Typ A,B (EIA) Ur L.pneumophila Ag Microbiology 09/28/17 14:40 Cerebral Spinal Fluid Gram Stain - Final 09/28/17 14:40 Cerebral Spinal Fluid CSF Culture - Preliminary NO GROWTH AFTER 3 DAYS 09/29/17 15:20 Blood-Venous Blood Culture - Preliminary NO GROWTH AFTER 24 HOURS 09/28/17 14:42 Blood-Venous Blood Culture - Preliminary NO GROWTH AFTER 48 HOURS 09/28/17 14:20 Blood-Venous Blood Culture - Preliminary NO GROWTH AFTER 48 HOURS 09/29/17 16:39 Sputum Gram Stain - Final 09/29/17 16:39 Sputum Sputum Culture - Final Assessment and Plan (1) Pneumonia Status: Acute (2) Fever Status: Acute - Assessment and Plan (Free Text) Assessment: A/P- 37 year old male with no PMH admitted with fever .chills and found to have LLL pneumonia. afebrile today normal wbc count CSF gram stain and cx- Ngetaive CSF cell count clear and only 2 wbc and mostly lymph not c/w bacterial meningitis. Chest Ct- left lower lobe infiltrate and possible effusion ( as per report). rapid HIV- negative' Influenza- Negative blood cx- neg x 2 UA- negative Hepatitis profile - Negative sputum cx- contaminated by oropharyngeal as per micro urine legionell AG- Negative Plan- await mycoplasma serology. advise to continue with empiric acyclovir pending CSF HSV PCR result. advise to continue with zithromax to cover for atypical lung pathogens. advise to continue with Iv zosyn day #3 for PNA. monitor temps closely. check another sputum cx.
--- NOTE | 2017-10-01 13:47 | CP.PCM.PN ---
Subjective - Date & Time of Evaluation Date of Evaluation: 10/01/17 Time of Evaluation: 12:00 - Subjective Subjective: Patient seen and examined at bedside. Clinically somewhat improved; however the patient had a fever of 101.4 at midnight. Still c/o headache but states it is improved. Currently afebrile. No other new developments. Objective - Vital Signs/Intake and Output Vital Signs (last 24 hours): Temp Pulse Resp BP Pulse Ox 99.1 F 55 L 20 136/86 96 10/01/17 08:43 10/01/17 08:43 10/01/17 08:43 10/01/17 08:43 10/01/17 08:43 - Medications Medications: Current Medications Acetaminophen (Tylenol 325mg Tab) 650 mg PO Q6 PRN PRN Reason: Fever >100.4 F Last Admin: 09/29/17 15:44 Dose: 650 mg Guaifenesin (Robitussin) 200 mg PO Q6 PRN PRN Reason: Cough Last Admin: 09/30/17 09:09 Dose: 200 mg Azithromycin 500 mg/ Sodium (Chloride) 250 mls @ 250 mls/hr IVPB DAILY CHERISE PRN Reason: Protocol Last Admin: 10/01/17 09:19 Dose: 250 mls/hr Sodium Chloride (Sodium Chloride 0.9%) 1,000 mls @ 75 mls/hr IV .[id number] CHERISE Last Admin: 09/30/17 23:35 Dose: Not Given Acyclovir 800 mg/ Sodium (Chloride) 250 mls @ 250 mls/hr IVPB Q8 CHERISE PRN Reason: Protocol Last Admin: 10/01/17 09:12 Dose: 250 mls/hr Piperacillin Sod/Tazobactam (Sod 3.375 gm/ Sodium Chloride) 100 mls @ 100 mls/ hr IVPB Q6 CHERISE PRN Reason: Protocol Last Admin: 10/01/17 09:13 Dose: 100 mls/hr - Labs Labs: 10/01/17 07:54 09/29/17 05:55 PT 14.3 Seconds (9.8-13.1) H 09/29/17 10:23 INR 1.3 (0.9-1.2) H 09/29/17 10:23 - Additional Findings Additional findings: Physical exam: Constitutional- cooperative, awake, alert Head- NCAT, PERRL Eye- PERRL, EOMI ENT- normal exam, MMM. Neck- normal inspection, supple, no JVD Respiratory- CTAB, no wheezes rales rhonchi Cardiovascular- RRR, +S1, +S2 no MRG GI/Abdominal- normal bowel sounds, soft, no mass, no hsm Skin- warm, dry Extremities Exam- normal capillary refill, normal inspection Neurological Exam- alert, awake, oriented Psych- normal mood, normal affect Assessment and Plan - Assessment and Plan (Free Text) Plan: 37 yo male with no significant PMH came in with persistent fever of 3 days duration accompanied with headache, general malaise, cough and diarrhea. LP was done in the ER but did not show evidence of meningitis. CXray was questionable for LLL infiltrate. 1) Persistent fever with LLL infiltrate on CXR - Temp 101.4 at midnight - ID consultation with Dr. Archer appreciated - Influenza negative - Hep profile negative - Legionella negative - Blood culture negative x 3 - Sputum culture contaminated, awaiting next sputum cx - Rapid HIV negative - Await mycoplasma serology - Continue abx as well as Acyclovir as per ID 2) DVT prophylaxis - Venodyne boots
[2017-10-01] MEDS: Sodium Chloride 0.9% 1,000 ML IV SCH (14:08)
[2017-10-01] MEDS ORDERED: Iodixanol 320 MG/ML 100 ML BOTTLE IV ONE (17:20)
[2017-10-01] MEDS ORDERED: Sodium Chloride 0.9% 50 ML IV ONE (17:20)
--- NOTE | 2017-10-01 19:12 | CT ---
PROCEDURE: CT Angiography of the Brain and Neck. HISTORY: r/o viral encephalitis COMPARISON: None available. TECHNIQUE: CT angiography of the intracranial and neck arteries was performed. Coronal and sagittal maximum intensity projection reformatted images were generated. Contrast Dose: Visipaque 320, 90 cc Radiation dose:Total exam DLP = 625.27 mGy-cm. This CT exam was performed using one or more of the following dose reduction techniques: Automated exposure control, adjustment of the mA and/or kV according to patient size, and/or use of iterative reconstruction technique. FINDINGS: INTERNAL CEREBRAL ARTERIES: Unremarkable. The skull base, petrous, cavernous and supraclinoid segments are bilaterally widely patent. ANTERIOR CEREBRAL ARTERIES: Unremarkable. A1 and A2 segments are widely patent. Smaller distal branches unremarkable, as visualized. MIDDLE CEREBRAL ARTERIES: Unremarkable. M1 and M2 segments are widely patent. Perisylvian branches grossly symmetric. POSTERIOR CIRCULATION: Basilar Artery: Unremarkable. Distal Vertebral Arteries: Unremarkable. Posterior Cerebral Arteries: Unremarkable. Posterior Inferior Cerebellar Arteries: Unremarkable. NECK CTA: Common Carotid arteries: The bilateral common carotid appear widely patent from their origins to their bifurcations with no significant stenosis appreciated. No evidence to suggest common carotid artery dissection. Internal Carotid arteries: No significant stenosis is appreciated throughout the cervical internal carotid artery segments bilaterally and there is no evidence of dissection either. External Carotid arteries: Appear unremarkable bilaterally. Vertebral arteries: The bilateral vertebral arteries appear normal in caliber from their origins to their junction with the basilar artery. No significant stenosis or definite pattern of dissection. ANEURYSM/ VASCULAR MALFORMATIONS: None. OTHER FINDINGS: Incidental left lower lobe superior segment pneumonia. Distal left maxillary sinus cyst or polyp. IMPRESSION: Unremarkable CT Angiography of the Brain. Incidental left lower lobe pneumonia partially captured.
[2017-10-02] MEDS: Sodium Chloride 0.9% 1,000 ML IV SCH ×4 (00:59→16:21)
[2017-10-02] MEDS: Piperacillin/Tazobact 3.375 GM in Sodium Chloride 0.9% 100 ML IVPB SCH ×4 (03:36→21:56)
[2017-10-02 06:39] LABS: EOS # 0.1 K/uL (0.0-0.7); EOS % 3.6 % (0.0-4.0); LYMPH # 1.2 K/uL (1.0-4.3); MEAN CELL VOLUME 87.1 fl (80.0-94.0); MEAN CORPUSCULAR HEMOGLOBIN 28.7 pg (27.0-31.0); MEAN CORPUSCULAR HGB CONC 32.9 g/dL (33.0-37.0); MEAN PLATELET VOLUME 11.3 fl (7.2-11.7); MONO # 0.4 K/uL (0.0-0.8); MONO % 10.6 % (0.0-10.0); NEUT # 2.2 K/uL (1.8-7.0); NEUT % 54.8 % (50.0-75.0); NRBC % 0.1 % (0.0-0.0); RBC 4.19 Mil/uL (4.40-5.90); RED CELL DISTRIBUTION WIDTH 14.5 % (11.5-14.5)
[2017-10-02 07:13] LABS: ALB/GLOB RATIO 0.8 (1.0-2.1); ALBUMIN 3.4 g/dL (3.5-5.0); ALT/SGPT 224 U/L (21-72); AST/SGOT 238 U/L (17-59); BLOOD UREA NITROGEN 11 mg/dl (9-20); GFR AFRICAN-AMERICAN > 60; GFR NON-AFRICAN AMERICAN > 60
[2017-10-02] MEDS: Azithromycin 500 MG in Sodium Chloride 0.9% 250 ML IVPB SCH (08:44)
--- NOTE | 2017-10-02 12:50 | CP.PCM.PN ---
Subjective - Date & Time of Evaluation Date of Evaluation: 10/02/17 Time of Evaluation: 12:46 - Subjective Subjective: Mr. Price was seen and examined at the bedside. He remains alert, oriented, denies any lightheadedness, dizziness, nausea, or vomiting. He complains of minimal frontal headache non radiating with pain scale 4/10. He is able to follow simple commands, ambulates within his room. CTA of the head and neck is normal. There was no untoward events overnight. Objective - Vital Signs/Intake and Output Vital Signs (last 24 hours): Temp Pulse Resp BP Pulse Ox 97.7 F 56 L 20 125/79 97 10/02/17 08:06 10/02/17 08:06 10/02/17 08:06 10/02/17 08:06 10/02/17 08:06 - Medications Medications: Current Medications Acetaminophen (Tylenol 325mg Tab) 650 mg PO Q6 PRN PRN Reason: Fever >100.4 F Last Admin: 09/29/17 15:44 Dose: 650 mg Guaifenesin (Robitussin) 200 mg PO Q6 PRN PRN Reason: Cough Last Admin: 09/30/17 09:09 Dose: 200 mg Azithromycin 500 mg/ Sodium (Chloride) 250 mls @ 250 mls/hr IVPB DAILY CHERISE PRN Reason: Protocol Last Admin: 10/02/17 08:44 Dose: 250 mls/hr Sodium Chloride (Sodium Chloride 0.9%) 1,000 mls @ 75 mls/hr IV .[id number] CHERISE Last Admin: 10/02/17 11:23 Dose: 75 mls/hr Acyclovir 800 mg/ Sodium (Chloride) 250 mls @ 250 mls/hr IVPB Q8 CHERISE PRN Reason: Protocol Last Admin: 10/02/17 08:45 Dose: 250 mls/hr Piperacillin Sod/Tazobactam (Sod 3.375 gm/ Sodium Chloride) 100 mls @ 100 mls/ hr IVPB Q6 CHERISE PRN Reason: Protocol Last Admin: 10/02/17 11:24 Dose: 100 mls/hr Ibuprofen (Motrin Tab) 600 mg PO Q8 PRN PRN Reason: Headache - Labs Labs: 10/02/17 06:00 10/02/17 06:00 PT 14.3 Seconds (9.8-13.1) H 09/29/17 10:23 INR 1.3 (0.9-1.2) H 09/29/17 10:23 - Constitutional Appears: No Acute Distress - Head Exam Head Exam: NORMAL INSPECTION - Eye Exam Pupil Exam: PERRL - Neurological Exam Neurological Exam: Alert, Awake, Oriented x3 Neuro motor strength exam: Left Upper Extremity: 5, Right Upper Extremity: 5, Left Lower Extremity: 5, Right Lower Extremity: 5 Additional comments: neurological unchanged from previous examination. Assessment and Plan (1) Viral encephalitis Assessment & Plan: Case discussed with Dr. Dickson, continue all current medical regimen. Recommend to follow any ID orders, hydration, and motrin 600 mg PO Q 6 PO PRN for mild to moderate intensity headache. Status: Acute
--- NOTE | 2017-10-02 13:23 | CP.PCM.PN ---
Subjective - Date & Time of Evaluation Date of Evaluation: 10/02/17 Time of Evaluation: 11:00 - Subjective Subjective: Patient was seen and examined at bedside. States he is feeling better today other than a mild headache and continued productive cough. Case discussed with Dr. Archer- awaiting HSV PCR from CSF. Patient denies chest pain, sob, weakness, n/v/d. Objective - Vital Signs/Intake and Output Vital Signs (last 24 hours): Temp Pulse Resp BP Pulse Ox 97.7 F 56 L 20 125/79 97 10/02/17 08:06 10/02/17 08:06 10/02/17 08:06 10/02/17 08:06 10/02/17 08:06 - Medications Medications: Current Medications Acetaminophen (Tylenol 325mg Tab) 650 mg PO Q6 PRN PRN Reason: Fever >100.4 F Last Admin: 09/29/17 15:44 Dose: 650 mg Guaifenesin (Robitussin) 200 mg PO Q6 PRN PRN Reason: Cough Last Admin: 09/30/17 09:09 Dose: 200 mg Azithromycin 500 mg/ Sodium (Chloride) 250 mls @ 250 mls/hr IVPB DAILY CHERISE PRN Reason: Protocol Last Admin: 10/02/17 08:44 Dose: 250 mls/hr Sodium Chloride (Sodium Chloride 0.9%) 1,000 mls @ 75 mls/hr IV .[id number] CHERISE Last Admin: 10/02/17 11:23 Dose: 75 mls/hr Acyclovir 800 mg/ Sodium (Chloride) 250 mls @ 250 mls/hr IVPB Q8 CHERISE PRN Reason: Protocol Last Admin: 10/02/17 08:45 Dose: 250 mls/hr Piperacillin Sod/Tazobactam (Sod 3.375 gm/ Sodium Chloride) 100 mls @ 100 mls/ hr IVPB Q6 CHERISE PRN Reason: Protocol Last Admin: 10/02/17 11:24 Dose: 100 mls/hr Ibuprofen (Motrin Tab) 600 mg PO Q8 PRN PRN Reason: Headache - Labs Labs: 10/02/17 06:00 10/02/17 06:00 PT 14.3 Seconds (9.8-13.1) H 09/29/17 10:23 INR 1.3 (0.9-1.2) H 09/29/17 10:23 - Additional Findings Additional findings: Physical exam: Constitutional- cooperative, awake, alert Head- NCAT, PERRL Eye- PERRL, EOMI ENT- normal exam, MMM. Neck- normal inspection, supple, no JVD Respiratory- mild crackles at left base, no wheezing or rhonchi Cardiovascular- RRR, +S1, +S2 no MRG GI/Abdominal- normal bowel sounds, soft, no mass, no hsm Skin- warm, dry Extremities Exam- normal capillary refill, normal inspection Neurological Exam- alert, awake, oriented Psych- normal mood, normal affect Assessment and Plan - Assessment and Plan (Free Text) Plan: 37 yo male with no significant PMH came in with persistent fever of 3 days duration accompanied with headache, general malaise, cough and diarrhea. LP was done in the ER but did not show evidence of meningitis. CXray was questionable for LLL infiltrate. 1) Left sided pneumonia with persistent fever, now resolved - Afebrile x 24 hours now - ID consultation with Dr. Archer appreciated- recommends repeat CXR today - Influenza negative - Hep profile negative - Legionella negative - Blood culture negative x 3 - Sputum culture contaminated, awaiting next sputum cx - Rapid HIV negative 2) r/o meningitis - Awaiting HSV CSF PCR from laboratory - Continue abx as well as Acyclovir as per ID- if HSV is negative can d/c Acyclovir 2) DVT prophylaxis - Venodyne boots
--- NOTE | 2017-10-02 18:22 | RAD ---
HISTORY: f/u Left sided pneumonia COMPARISON: CT chest dated 09/29/2017 TECHNIQUE: Chest PA and lateral FINDINGS: LUNGS: Slightly improved left lower lobe aeration with persistent infiltrate. PLEURA: No significant pleural effusion identified. No pneumothorax apparent. CARDIOVASCULAR: Normal. OSSEOUS STRUCTURES: No significant abnormalities. VISUALIZED UPPER ABDOMEN: Normal. OTHER FINDINGS: None. IMPRESSION: Slightly improved left lower lobe aeration with persistent infiltrate.
[2017-10-03 00:16] VITALS: TEMP 97.7
[2017-10-03] MEDS: Piperacillin/Tazobact 3.375 GM in Sodium Chloride 0.9% 100 ML IVPB SCH ×2 (03:08→09:08)
[2017-10-03 08:36] VITALS: BP 137/87; RESP 18; O2SAT 97
[2017-10-03 08:39] VITALS: PULSE 50
[2017-10-03] MEDS: Azithromycin 500 MG in Sodium Chloride 0.9% 250 ML IVPB SCH (12:11)
--- NOTE | 2017-10-03 14:41 | CP.PCM.DIS ---
Provider - Provider Date of Admission: 09/29/17 12:00 Attending physician: Jorge Coelho DO Primary care physician: Service Consults: Dr. Dickson- neurology Dr. Archer- Infectious disease Time Spent in preparation of Discharge (in minutes): 25 Hospital Course - Lab Results Lab Results: Micro Results 09/28/17 14:20 Blood-Venous Blood Culture - Final NO GROWTH AFTER 5 DAYS 09/28/17 14:20 Blood-Venous Gram Stain - Final TEST NOT PERFORMED 10/01/17 09:29 Sputum Gram Stain - Final 10/01/17 09:29 Sputum Sputum Culture - Preliminary NORMAL ORAL YUDELKA 09/28/17 14:40 Cerebral Spinal Fluid Gram Stain - Final 09/28/17 14:40 Cerebral Spinal Fluid CSF Culture - Final No growth. 09/29/17 15:20 Blood-Venous Blood Culture - Preliminary NO GROWTH AFTER 3 DAYS 09/28/17 14:42 Blood-Venous Blood Culture - Preliminary NO GROWTH AFTER 4 DAYS 09/29/17 16:39 Sputum Gram Stain - Final 09/29/17 16:39 Sputum Sputum Culture - Final Most Recent Lab Values WBC 4.0 K/uL (4.8-10.8) L 10/02/17 06:00 RBC 4.19 Mil/uL (4.40-5.90) L 10/02/17 06:00 Hgb 12.0 g/dL (12.0-18.0) 10/02/17 06:00 Hct 36.5 % (35.0-51.0) 10/02/17 06:00 MCV 87.1 fl (80.0-94.0) 10/02/17 06:00 MCH 28.7 pg (27.0-31.0) 10/02/17 06:00 MCHC 32.9 g/dL (33.0-37.0) L 10/02/17 06:00 RDW 14.5 % (11.5-14.5) 10/02/17 06:00 Plt Count 175 K/uL (130-400) 10/02/17 06:00 MPV 11.3 fl (7.2-11.7) 10/02/17 06:00 Neut % (Auto) 54.8 % (50.0-75.0) 10/02/17 06:00 Lymph % (Auto) 30.0 % (20.0-40.0) 10/02/17 06:00 [place] % (Auto) 10.6 % (0.0-10.0) H 10/02/17 06:00 Eos % (Auto) 3.6 % (0.0-4.0) 10/02/17 06:00 Baso % (Auto) 1.0 % (0.0-2.0) 10/02/17 06:00 Neut # (Auto) 2.2 K/uL (1.8-7.0) 10/02/17 06:00 Lymph # (Auto) 1.2 K/uL (1.0-4.3) 10/02/17 06:00 [place] # (Auto) 0.4 K/uL (0.0-0.8) 10/02/17 06:00 Eos # (Auto) 0.1 K/uL (0.0-0.7) 10/02/17 06:00 Baso # (Auto) 0.0 K/uL (0.0-0.2) 10/02/17 06:00 Neutrophils % (Manual) 83 % (42-75) H 09/28/17 14:20 Band Neutrophils % 6 % (0-2) H 09/28/17 14:20 Lymphocytes % (Manual) 6 % (20-50) L 09/28/17 14:20 Monocytes % (Manual) 5 % (0-10) 09/28/17 14:20 Platelet Estimate Markedly decreased (NORMAL) L 09/28/17 14:20 Large Platelets Present 09/28/17 14:20 Anisocytosis (manual) Slight 09/28/17 14:20 Microcytosis (manual) Slight 09/28/17 14:20 PT 14.3 Seconds (9.8-13.1) H 09/29/17 10:23 INR 1.3 (0.9-1.2) H 09/29/17 10:23 pO2 39 mm/Hg (30-55) 09/28/17 13:41 VBG pH 7.46 (7.32-7.43) H 09/28/17 13:41 VBG pCO2 31 mmHg (40-60) L 09/28/17 13:41 VBG HCO3 23.7 mmol/L 09/28/17 13:41 VBG Total CO2 23.0 mmol/L (22-28) 09/28/17 13:41 VBG O2 Sat (Calc) 82.2 % (40-65) H 09/28/17 13:41 VBG Base Excess -0.9 mmol/L (0.0-2.0) L 09/28/17 13:41 VBG Potassium 3.7 mmol/L (3.6-5.2) 09/28/17 13:41 Sodium 134.0 mmol/L (132-148) 09/28/17 13:41 Chloride 102.0 mmol/L (98-107) 09/28/17 13:41 Glucose 154 mg/dL (75-110) H 09/28/17 13:41 Lactate 2.0 mmol/L (0.7-2.1) 09/28/17 13:41 FiO2 21.0 % 09/28/17 13:41 Blood Gas Comments Lac=2.0 09/28/17 13:41 Crit Value Called To kaycee Ward 09/28/17 13:41 Crit Value Called By Hs 09/28/17 13:41 Crit Value Read Back Y 09/28/17 13:41 Blood Gas Notified Time 1347 09/28/17 13:41 Sodium 144 mmol/l (132-148) 10/02/17 06:00 Potassium 4.1 MMOL/L (3.6-5.0) 10/02/17 06:00 Chloride 107 mmol/L (98-107) 10/02/17 06:00 Carbon Dioxide 28 mmol/L (22-30) 10/02/17 06:00 Anion Gap 13 (10-20) 10/02/17 06:00 BUN 11 mg/dl (9-20) 10/02/17 06:00 Creatinine 0.8 mg/dl (0.8-1.5) 10/02/17 06:00 Est GFR ( Amer) > 60 10/02/17 06:00 Est GFR (Non-Af Amer) > 60 10/02/17 06:00 Random Glucose 101 mg/dL (75-110) 10/02/17 06:00 Calcium 9.0 mg/dL (8.4-10.2) 10/02/17 06:00 Total Bilirubin 0.5 mg/dl (0.2-1.3) 10/02/17 06:00 Direct Bilirubin 0.6 mg/ml (0.0-0.4) H 09/29/17 09:12 AST 238 U/L (17-59) H D 10/02/17 06:00 ALT 224 U/L (21-72) H D 10/02/17 06:00 Alkaline Phosphatase 107 U/L (38-126) 10/02/17 06:00 Total Protein 7.5 G/DL (6.3-8.2) 10/02/17 06:00 Albumin 3.4 g/dL (3.5-5.0) L 10/02/17 06:00 Globulin 4.1 gm/dL (2.2-3.9) H 10/02/17 06:00 Albumin/Globulin Ratio 0.8 (1.0-2.1) L 10/02/17 06:00 Venous Blood Potassium 3.7 mmol/L (3.6-5.2) 09/28/17 13:41 Urine Color Yellow (YELLOW) 09/28/17 16:55 Urine Clarity Slighty-cloudy (Clear) 09/28/17 16:55 Urine pH 6.0 (5.0-8.0) 09/28/17 16:55 Ur Specific [place] 1.013 (1.003-1.030) 09/28/17 16:55 Urine Protein 100 mg/dL (NEGATIVE) 09/28/17 16:55 Urine Glucose (UA) Neg mg/dL (Normal) 09/28/17 16:55 Urine Ketones Negative mg/dL (NEGATIVE) 09/28/17 16:55 Urine Blood Negative (NEGATIVE) 09/28/17 16:55 Urine Nitrate Negative (NEGATIVE) 09/28/17 16:55 Urine Bilirubin Negative (NEGATIVE) 09/28/17 16:55 Urine Urobilinogen 0.2-1.0 mg/dL (0.2-1.0) 09/28/17 16:55 Ur Leukocyte Esterase Neg Genie/uL (Negative) 09/28/17 16:55 Urine RBC (Auto) 3 /hpf (0-3) 09/28/17 16:55 Urine Microscopic WBC 2 /hpf (0-5) 09/28/17 16:55 Urine Bacteria Rare (<OCC) 09/28/17 16:55 Fluid Type Spinal fluid 09/28/17 14:40 CSF Volume 2 mL (0-1) H 09/28/17 14:40 CSF Appearance Clear/colorless (CLEAR) 09/28/17 14:40 CSF WBC 4.0 /mm3 (0.0-5.0) 09/28/17 14:40 CSF RBC 2.0 /mm3 (0.0-0.0) H 09/28/17 14:40 CSF Total Cell Counted 15 (0-0) H 09/28/17 14:40 CSF Lymphocytes 13.0 % (0-0) H 09/28/17 14:40 CSF Monos/Macrophages 2 % (0-0) H 09/28/17 14:40 CSF Comment Tube #4 09/28/17 14:18 CSF Glucose 81 mg/dL (40-70) H 09/28/17 14:40 CSF Total Protein 44.0 mg/dL (12-60) 09/28/17 14:40 CSF IgG/Serum IgG 2.0 mg/dL (0.8-7.7) 09/28/17 14:40 CSF VDRL Nonreactive (Nonreactive) 09/28/17 14:40 Urine Opiates Screen Negative (NEGATIVE) 09/29/17 14:31 Urine Methadone Screen Negative (NEGATIVE) 09/29/17 14:31 Ur Barbiturates Screen Negative (NEGATIVE) 09/29/17 14:31 Ur Phencyclidine Scrn Negative (NEGATIVE) 09/29/17 14:31 Ur Amphetamines Screen Negative (NEGATIVE) 09/29/17 14:31 U Benzodiazepines Scrn Negative (NEGATIVE) 09/29/17 14:31 U Oth Cocaine Metabols Negative (NEGATIVE) 09/29/17 14:31 U Cannabinoids Screen Negative (NEGATIVE) 09/29/17 14:31 Hepatitis A IgM Ab Negative (NEGATIVE) 09/29/17 11:50 Hep Bs Antigen Negative (NEGATIVE) 09/29/17 11:50 Hep B Core IgM Ab Negative (NEGATIVE) 09/29/17 11:50 Hepatitis C Antibody Negative (NEGATIVE) 09/29/17 11:50 HSV Source Description Fluid 09/28/17 14:40 HIV-1 Ab Rapid Screen Non reactive (NON REAC) 09/29/17 09:12 Influenza Typ A,B (EIA) Negative for flu a/b (NEGATIVE) 09/28/17 14:42 Ur L.pneumophila Ag Negative (NEGATIVE) 09/29/17 11:04 Mycoplasma pneumon IgG 3.65 (<=0.90) H 09/29/17 15:29 Mycoplasma pneumon IgM 48 U/mL (<770) 09/29/17 15:29 - Hospital Course Hospital Course: This is a 37 year old male with a past medical history of persistent fever since 3 days prior to admission, who came to the ED with the complaint of generalized malaise, headache, neck pain, body aches, cough, and diarrhea. The patient states that he was given motrin but despite this the fever kept coming back. In the ED, LP was done which showed clear spinal fluid with mild lymphocyte elevation but otherwise no acute evidence of meningitis. He denies photophobia, nausea, or vomiting, but does complain of generalized headache, fever, cough, and chills. CT scan was done which shows likely artifact but cannot rule out completely small SAH (though as per neurology this is highly unlikely given no blood in CSF and no other signs). SAH was later ruled out with repeat CT head. In addition, the patient was seen to have questionable left lower lobe infiltrate on CXR. He was admitted and treated with Azithromycin and Rocephin for his pneumonia and Acyclovir was continued for possible HSV meningitis, although this was later thought unlikely. Over the course of his stay his fever and headache improved with antibiotics. Today, the patient has been afebrile for almost 3 days with no headache today and no cough. Repeat CXR shows improvement of his pneumonia. He is being discharged today in stable condition and was instructed to follow up at clinic next . He was also given 5 more days of Levaquin for his pneumonia, given ther persistance of his fever during his inpatient stay. 37 yo male with no significant PMH came in with persistent fever of 3 days duration accompanied with headache, general malaise, cough and diarrhea. LP was done in the ER but did not show evidence of meningitis. CXray was questionable for LLL infiltrate. 1) Left sided pneumonia with persistent fever, now resolved - Afebrile > 48 hours - ID consultation with Dr. Archer appreciated - Influenza negative - Hep profile negative - Legionella negative - Blood culture negative x 3 - Sputum culture contaminated, awaiting next sputum cx - Rapid HIV negative - 5 more days of Levaquin 2) r/o meningitis - Awaiting HSV CSF PCR from laboratory- will f/u and contact patient if this ends up being positive, as he will require more days of IV Acyclovir 3) DVT prophylaxis - Venodyne boots while he was in house Discharge Exam - Head Exam Head Exam: NORMAL INSPECTION - Additional Findings Additional findings: Physical exam: Constitutional- cooperative, awake, alert Head- NCAT, PERRL Eye- PERRL, EOMI ENT- normal exam, MMM. Neck- normal inspection, supple, no JVD Respiratory- CTAB, no wheezes rales rhonchi Cardiovascular- RRR, +S1, +S2 no MRG GI/Abdominal- normal bowel sounds, soft, no mass, no hsm Skin- warm, dry Extremities Exam- normal capillary refill, normal inspection Neurological Exam- alert, awake, oriented Psych- normal mood, normal affect Discharge Plan - Discharge Medications Prescriptions: guaiFENesin [Robitussin] 200 mg PO Q6 PRN #1 bottle PRN Reason: Cough Levofloxacin [Levaquin] 500 mg PO DAILY #5 tablet - Follow Up Plan Condition: STABLE Disposition: HOME/ ROUTINE Instructions: Pneumonia, Adult (DC) Additional Instructions: appointment at [facility], October 09 @ [address] Hannah Referrals: [facility] [place] [Outside] Jonathan Leon MD [Medical Doctor] - Damien Dickson MD [Medical Doctor] -
[2017-10-05 10:52] LABS: SPECIMEN SOURCE CSF
--- NOTE | 2017-10-07 11:44 | PQF ---
PROVIDER RESPONSE TEXT: Meningitis was ruled out by laboratory results on this admission. REVIEWER QUERY TEXT: Rule Out Condition Clarification Pt has documented __RULE OUT MENINGITIS noted as ?rule out? or similar terminology suc h as suspected, probable, etc. Please clarify status of this condition: -Patient has condition -Condition was ruled out Please provide corresponding diagnosis for patient's clinical picture and associated treatment -Patient had condition which is now resolved -Other (please specify) -Clinically unable to determine -Unknown The patient's Clinical Indicators include: fever Query created by: Yanelis Christie on 10/06/2017 2:27 PM Electronically signed by: Namrata Coelho MD 10/07/2017 11:41 AM
== END 2017-10-03 15:04 | disposition home or self-care (01) | DRG 90 ==
LOC: H.ER 12:50 → H.ERHOLD 16:44 → H.MEDSURG1 18:57 → OBSVTOIN 09-29 12:00
PROVIDERS: ADMIT Internal Medicine; ATTEND Internal Medicine
PROC: 009U3ZX Drainage of Spinal Canal, Percutaneous Approach, Diagnostic (ICD-10-PCS; principal; 2017-09-28)
DX: J18.9 Pneumonia, unspecified organism (principal)